=== PATIENT | female | born 1940 | race Hispanic/Latino ===

== ENCOUNTER 2018-07-15 20:03 | Observation (INO) | payer OTHER ==
--- OUTSIDE RECORDS SUMMARY | 2018-07-15 20:05 | XMS REPORT ---
:1940 [facility] Address [address] [place] [address] Care Team Providers Name Role Phone Unavailable Unavailable Unavailable Payers Payer Name Policy Type Policy Number Effective Date Expiration Date Problems This patient has no known problems. Allergies, Adverse Reactions, Alerts Allergy Allergy Status Severity Reaction(s) Onset Inactive Treating Comments Name Type Date Date Clinician sebas SILVA Active U 2011-02 00:00:0 0 Medications This patient has no known medications.
[2018-07-15 20:44] LABS: Absolute Lymphocytes (CBC) 2.6 K/uL (0.7-4.9); Absolute Monocytes 0.7 K/uL (0.1-1.3); Absolute Neutrophil 4.7 K/uL (1.8-8.0); Eosinophils % 1.7 % (0-4.4); Hematocrit 42.6 % (36.0-45.0); Lymphocytes % 31.7 % (15.3-44.8); MCH 31.2 pg (27.0-35.0); MCV 93.3 fL (80-100); MPV 9.6 fL (7.6-11.3); Monocytes % 8.4 % (3.3-12.3); RBC Red Blood Cell Count 4.56 M/uL (3.86-4.86)
[2018-07-15 20:51] LABS: Protime INR 0.97
--- NOTE | 2018-07-15 20:51 | RAD REPORT ---
EXAM DESCRIPTION: RAD - Chest Single View - 07/15/2018 8:44 pm CLINICAL HISTORY: CHEST PAIN Chest pain. COMPARISON: No comparisons FINDINGS: Portable technique limits examination quality. The lungs are grossly clear. The heart is normal in size. No displaced fractures.Aortic atheroscleros is IMPRESSION: No acute intrathoracic process suspected.
[2018-07-15 21:00] LABS: Urine Blood NEGATIVE (NEG); Urine Glucose NEGATIVE (NEG); Urine Protein 2+ (NEG)
[2018-07-15 21:01] LABS: ALT/SGPT 44 U/L (12-78); AST/SGOT 27 U/L (15-37); Albumin 3.8 g/dL (3.4-5.0); Alkaline Phosphatase 128 U/L (45-117); BUN Blood Urea Nitrogen 20 mg/dL (7-18); Bicarbonate 25 mmol/L (21-32); Bilirubin Direct < 0.1 mg/dL (0-0.2); Bilirubin Total 0.3 mg/dL (0.2-1.0); Glucose Level 103 mg/dL (74-106); Magnesium 2.3 mg/dL (1.8-2.4); NT PRO-BNP 870 pg/mL (<450); Potassium 4.1 mmol/L (3.5-5.1); Protein, Total 8.1 g/dL (6.4-8.2); Sodium Level 143 mmol/L (136-145); Troponin (Emerg Dept Use Only) < 0.02 ng/mL (0.0-0.045)
--- NOTE | 2018-07-15 21:26 | ER ---
Nurse's Notes [facility] Name: Heaven Saldivar Age: 77 yrs Sex: Female : 1940 Arrival Date: 07/15/2018 Time: 20:06 Bed 20 Private MD: Lorena Scruggs R Diagnosis: Chest pain, unspecified Presentation: 07/15 20:07 Presenting complaint: Child states: "She was just having a real stressful episode and aj1 she started having palpitations and we couldn't get the blood pressure cuff to read on her" Patient reports substernal chest pain, palpitations, dizziness. Denies SOB. Transition of care: patient was not received from another setting of care. Onset of symptoms was July 15, 2018 at 19:50. Risk Assessment: Do you want to hurt yourself or someone else? Patient reports no desire to harm self or others. Initial Sepsis Screen: Does the patient meet any 2 criteria? No. Patient's initial sepsis screen is negative. Does the patient have a suspected source of infection? No. Patient's initial sepsis screen is negative. Care prior to arrival: None. 20:07 Method Of Arrival: Ambulatory aj1 20:07 Acuity: JOSÉ MIGUEL 3 aj1 Triage Assessment: 20:10 General: Appears in no apparent distress. comfortable, Behavior is calm, cooperative, aj1 appropriate for age. Pain: Complains of pain in mid-sternal area. Neuro: Level of Consciousness is awake, alert, obeys commands. Cardiovascular: Reports chest pain, palpitations, Denies shortness of breath, Patient's skin is warm and dry. Respiratory: Airway is patent Respiratory effort is even, unlabored, Respiratory pattern is regular, symmetrical. Historical: - Allergies: 20:10 Codeine; aj1 - Home Meds: 20:10 atorvastatin 10 mg oral tab 1 tab once daily [Active]; amlodipine 10 mg tab 1 tab once aj1 daily [Active]; - PMHx: 20:10 Hyperlipidemia; Hypertension; aj1 - Immunization history:: Flu vaccine is up to date. - Social history:: Smoking status: Patient/guardian denies using tobacco. - Ebola Screening: : Patient denies travel to an Ebola-affected area in the 21 days before illness onset. Screenin:27 Abuse screen: Denies threats or abuse. Denies injuries from another. Nutritional ak1 screening:. Tuberculosis screening: No symptoms or risk factors identified. Fall Risk None identified. Assessment: 20:27 General: Appears in no apparent distress. Behavior is calm, cooperative, anxious, ak1 crying. Pain: Complains of pain in mid-sternal area. Neuro: No deficits noted. Cardiovascular: Reports palpitations, pt reports increased stress at home with the holiday and her needing special attention. Respiratory: No deficits noted. GI: No signs and/or symptoms were reported involving the gastrointestinal system. : No signs and/or symptoms were reported regarding the genitourinary system. EENT: No signs and/or symptoms were reported regarding the EENT system. Derm: No signs and/or symptoms reported regarding the dermatologic system. Musculoskeletal: No signs and/or symptoms reported regarding the musculoskeletal system. Vital Signs: 20:10 BP 207 / 74; Pulse 62; Resp 18; Temp 97.2; Pulse Ox 97% on R/A; Weight 83.01 kg (R); aj1 Height 4 ft. 7 in. (139.70 cm) (R); Pain 6/10; 21:02 BP 194 / 84; Pulse 54; Resp 16; Temp 98.; Pulse Ox 98% on R/A; ak1 20:10 Body Mass Index 42.53 (83.01 kg, 139.70 cm) aj1 ED Course: 20:06 Patient arrived in ED. es 20:06 Lorena Scruggs MD is Private Physician. es 20:08 Triage completed. aj1 20:10 Arm band placed on Patient placed in an exam room. aj1 20:15 Zane Vela PA is PHCP. [facility] 20:15 Chevy Rodriguez MD is Attending Physician. [facility] 20:27 Tigist Reddy, RN is Primary Nurse. ak1 20:27 EKG done, by ED staff, reviewed by Chevy Rodriguez MD. mt 20:29 Initial lab(s) drawn, by de, sent to lab. Urine collected: clean catch specimen. ak1 Inserted saline lock: 22 gauge in right forearm, using aseptic technique. Blood collected. Missed attempt(s): 22 gauge in right wrist. Bleeding controlled, band aid applied, catheter tip intact. 20:30 Patient has correct armband on for positive identification. Placed in gown. Bed in low ak1 position. Call light in reach. Side rails up X 1. Adult w/ patient. semiconductor packages platemaker on. Pulse ox on. NIBP on. 20:45 XRAY Chest (1 view) In Process Unspecified. EDMS 21:19 Trav Lobo MD is Hospitalizing Provider. otilia 22:32 No provider procedures requiring assistance completed. Patient admitted, IV remains in ak1 place. Administered Medications: : Drug: Aspirin Chewable Tablet 324 mg Route: PO; ak1 21:27 Follow up: Response: No adverse reaction ak1 Outcome: 21:20 Decision to Hospitalize by Provider. [facility] 22:32 Admitted to Tele accompanied by tech, family with patient, via wheelchair, room 208, ak1 with chart, Report called to Jacey 22:32 Condition: good 22:32 Instructed on the need for admit. 22:47 Patient left the ED. al1 Signatures: Dispatcher [employer] Анна Valle, RN RN aj1 Zane Vela PA PA jmm Salyer, Edna es Krenek, Amber RN RN ak1 Saira Hoff tn
--- NOTE | 2018-07-15 21:26 | EDPHYS ---
Physician Documentation [facility] Name: Heaven Saldivar Age: 77 yrs Sex: Female : 1940 Arrival Date: 07/15/2018 Time: 20:06 Bed 20 Private MD: Lorena Scruggs R ED Physician Chevy Rodriguez HPI: 07/15 20:45 This 77 yrs old Female presents to ER via Ambulatory with complaints of jmm Palpitations. 20:45 The patient or guardian reports chest pain that is located primarily in the substernal jmm area. Onset: gradually, 2 hour(s) ago. The pain radiates to throat. Associated signs and symptoms: Pertinent negatives: cough, shortness of breath. The chest pain is described as a pressure. This is a 77 year old female with a history of hlp, htn that presents to the ED with palpitations and substernal chest pain beginning approx 2 hours ago after a family related stressful event. Patient states the patient radiates to her throat. Patient has family history of [place]. Historical: - Allergies: 20:10 Codeine; aj1 - Home Meds: 20:10 atorvastatin 10 mg oral tab 1 tab once daily [Active]; amlodipine 10 mg tab 1 tab once aj1 daily [Active]; - PMHx: 20:10 Hyperlipidemia; Hypertension; aj1 - Immunization history:: Flu vaccine is up to date. - Social history:: Smoking status: Patient/guardian denies using tobacco. - Ebola Screening: : Patient denies travel to an Ebola-affected area in the 21 days before illness onset. ROS: 20:45 Constitutional: Negative for fever, chills, and weight loss, Eyes: Negative for injury, jmm pain, redness, and discharge, ENT: Negative for injury, pain, and discharge. 20:45 Respiratory: Negative for shortness of breath, cough, wheezing, and pleuritic chest pain, Abdomen/GI: Negative for abdominal pain, nausea, vomiting, diarrhea, and constipation, Back: Negative for injury and pain, MS/Extremity: Negative for injury and deformity, Skin: Negative for injury, rash, and discoloration, Neuro: Negative for headache, weakness, numbness, tingling, and seizure. 20:45 Cardiovascular: Positive for chest pain. 20:45 All other systems are negative. Exam: 20:45 Head/Face: atraumatic. Eyes: EOMI, no conjunctival erythema appreciated ENT: Moist [facility] Mucus Membranes Neck: Trachea midline, Supple Chest/axilla: Normal chest wall appearance and motion. 20:45 Respiratory: Normal respirations, no respiratory distress appreciated Abdomen/GI: Non distended, soft Back: Normal ROM Skin: General appearance color normal MS/ Extremity: Moves all extremities, no obvious deformities appreciated, no edema noted to the lower extremities Neuro: Awake and alert, normal gait Psych: Behavior is normal, Mood is normal, Patient is cooperative and pleasant 20:45 Constitutional: The patient appears in no acute distress, alert, awake. 20:45 Cardiovascular: Rate: normal, Rhythm: regular, Pulses: no pulse deficits are appreciated. Vital Signs: 20:10 BP 207 / 74; Pulse 62; Resp 18; Temp 97.2; Pulse Ox 97% on R/A; Weight 83.01 kg (R); aj1 Height 4 ft. 7 in. (139.70 cm) (R); Pain 6/10; 21:02 BP 194 / 84; Pulse 54; Resp 16; Temp 98.; Pulse Ox 98% on R/A; ak1 20:10 Body Mass Index 42.53 (83.01 kg, 139.70 cm) aj1 MDM: 20:27 Patient medically screened. [facility] 21:19 The patient was given aspirin in the Emergency Department. Data reviewed: vital signs, [facility] nurses notes, lab test result(s), EKG, radiologic studies, plain films. ED course: I discussed the patient with Dr. Lobo whom accepted admission. . 21:19 Counseling: I had a detailed discussion with the patient and/or guardian regarding: the [facility] historical points, exam findings, and any diagnostic results supporting the discharge/admit diagnosis, lab results, radiology results, the need for further work-up and treatment in the hospital. 07/15 20: Order name: Basic Metabolic Panel; Complete Time: 21:02 [facility] 07/15 20: Order name: CBC with Diff; Complete Time: 20:51 [facility] 07/15 20: Order name: LFT's; Complete Time: 21:02 [facility] 07/15 20: Order name: Magnesium; Complete Time: 21:02 [facility] 11/21 20:27 Order name: NT PRO-BNP; Complete Time: 21:02 [facility] 07/15 20:27 Order name: PT-INR; Complete Time: 21:02 [facility] 07/15 20:27 Order name: Troponin (emerg Dept Use Only); Complete Time: 21:02 [facility] 07/15 20:27 Order name: XRAY Chest (1 view); Complete Time: 20:52 [facility] 07/15 20:27 Order name: EKG; Complete Time: 20: [facility] 07/15 20:27 Order name: Cardiac monitoring; Complete Time: 20:28 [facility] 07/15 20:27 Order name: EKG - Nurse/Tech; Complete Time: 20: [facility] 07/15 20:27 Order name: IV Saline Lock; Complete Time: 20: [facility] 07/15 20:39 Order name: Urine Dipstick--Ancillary (enter results); Complete Time: 21: [facility] 07/15 20:27 Order name: Labs collected and sent; Complete Time: 20: [facility] 07/15 20:27 Order name: O2 Per Protocol; Complete Time: 20: [facility] 07/15 20:27 Order name: O2 Sat Monitoring; Complete Time: 20: [facility] Administered Medications: 21:27 Drug: Aspirin Chewable Tablet 324 mg Route: PO; ak1 21:27 Follow up: Response: No adverse reaction ak1 Disposition: 07/16 05:13 Co-signature as Attending Physician, Chevy Rodriguez MD I agree with the assessment and 4 plan of care. Disposition: 07/15/18 21:20 Hospitalization ordered by Trav Lobo for Observation. Preliminary diagnosis is Chest pain, unspecified. - Bed requested for Telemetry/MedSurg (observation). - Status is Observation. ak1 - Condition is Stable. - Problem is new. - Symptoms are unchanged. UTI on Admission? No Signatures: Dispatcher [employer] Анна Valle, RN RN [email or web address] Zane Vela PA PA jmm Tigist Reddy RN RN no1 Chevy Rodriguez MD MD tw4 Vera Perez mw2 Corrections: (The following items were deleted from the chart) 07/15 21:46 21:20 Hospitalization Ordered by Trav Lobo MD for Observation. Preliminary mw2 diagnosis is Chest pain, unspecified. Bed requested for Telemetry/MedSurg (observation). Status is Observation. Condition is Stable. Problem is new. Symptoms are unchanged. UTI on Admission? No. jmm 22:47 21:46 07/15/2018 21:20 Hospitalization Ordered by Trav Lobo MD for Observation. ak1 Preliminary diagnosis is Chest pain, unspecified. Bed requested for Telemetry/MedSurg (observation). Status is Observation. Condition is Stable. Problem is new. Symptoms are unchanged. UTI on Admission? No. mw2
[2018-07-15] MEDS ORDERED: ASPIRIN 81 MG CHEWABLE TABLET ONE (21:33)
[2018-07-15] MEDS ORDERED: ALPRAZOLAM 0.25 MG TABLET PO PRN (22:00)
[2018-07-15] MEDS ORDERED: ACETAMINOPHEN 500 MG TAB PO PRN (22:00)
[2018-07-15] MEDS ORDERED: MORPHINE 4 MG/ML SYR IV PRN (22:00)
[2018-07-16] MEDS ORDERED: AMLODIPINE 10 MG TAB PO ONE (00:26)
[2018-07-16] MEDS ORDERED: ATORVASTATIN 20 MG TAB PO ONE (00:27)
[2018-07-16 05:35] LABS: Absolute Lymphocytes (CBC) 2.4 K/uL (0.7-4.9); Absolute Monocytes 0.7 K/uL (0.1-1.3); Absolute Neutrophil 4.3 K/uL (1.8-8.0); Basophils % 0.4 % (0-1.3); Eosinophils % 1.7 % (0-4.4); Hematocrit 39.9 % (36.0-45.0); Lymphocytes % 31.8 % (15.3-44.8); MCH 31.1 pg (27.0-35.0); MCV 93.3 fL (80-100); MPV 9.7 fL (7.6-11.3); Monocytes % 9.4 % (3.3-12.3); RBC Red Blood Cell Count 4.28 M/uL (3.86-4.86)
[2018-07-16 05:51] LABS: BUN Blood Urea Nitrogen 14 mg/dL (7-18); Bicarbonate 27 mmol/L (21-32); Glucose Level 93 mg/dL (74-106); Potassium 3.8 mmol/L (3.5-5.1); Sodium Level 144 mmol/L (136-145)
[2018-07-16] MEDS ORDERED: PNEUMOCOCCAL VACCINE 0.5 ML IMVAC ONE (08:00)
--- NOTE | 2018-07-16 08:24 | P.HP ---
Certification for Inpatient Patient admitted to: Observation With expected LOS: <2 Midnights Patient will require the following post-hospital care: None Practitioner: I am a practitioner with admitting privileges, knowledge of patient current condition, hospital course, and medical plan of care. Services: Services provided to patient in accordance with Admission requirements found in Title 42 Section 412.3 of the Code of Federal Regulations Patient History Date of Service: 07/15/18 Reason for admission: Chest pain rule out/palpitations History of Present Illness: Patient is a 77-year-old female who was sitting at home when she suddenly started having palpitations. She was with her family who from decided bring her into the hospital. In the emergency room her workup did not reveal any significant abnormalities. She was having chest pain but this was alleviated when she came into the ER by medication she received. She has not had the chest pain recur. She is feeling better and she is feeling that she may be able to go home. However, currently we are awaiting her repeat EKG and troponins. If these are negative then she may be able to go home in the morning if Cardiology is agreeable. Allergies codeine Allergy (Verified 07/15/18 23:09) Hives/Rash Home Medications: Amlodipine [Norvasc*] 1 tab PO BEDTIME 07/15/18 Atorvastatin Calcium [Lipitor*] 1 tab PO BEDTIME 07/15/18 - Past Medical/Surgical History Has patient received pneumonia vaccine in the past: No Diabetic: No -: Hyperlipedimia -: Hypertension -: L mastectomy - Family History Father Medical History: Stroke Mother Medical History: Heart disease - Social History Smoking Status: Never smoker Alcohol use: No CD- Drugs: No Caffeine use: Yes Place of Residence: Home Review of Systems 10-point ROS is otherwise unremarkable Physical Examination - Vital Signs Temperature: 97.8 F Blood Pressure: 162/68 Pulse: 52 Respirations: 18 Pulse Ox (%): 93 - Physical Exam General: Alert, In no apparent distress, Oriented x3 HEENT: Atraumatic, PERRLA, Mucous membr. moist/pink, EOMI, Sclerae nonicteric Neck: Supple, 2+ carotid pulse no bruit, No LAD, Without JVD or thyroid abnormality Respiratory: Clear to auscultation bilaterally, Normal air movement Cardiovascular: Regular rate/rhythm, Normal S1 S2, Systolic murmur Gastrointestinal: Normal bowel sounds, Soft and benign, Non-distended, No tenderness Musculoskeletal: No clubbing, No swelling, No tenderness Integumentary: No rashes Neurological: Normal gait, Normal speech, Normal strength at 5/5 x4 extr, Normal tone, Sensation intact, Cranial nerves 3-12 intact, Normal affect Lymphatics: No axilla or inguinal lymphadenopathy - Studies Laboratory Data (last 24 hrs) 07/15/18 20:30: PT 11.5, INR 0.97 07/15/18 20:30: WBC 8.2, Hgb 14.2, Hct 42.6, Plt Count 177 07/15/18 20:30: Sodium 143, Potassium 4.1, BUN 20 H, Creatinine 0.80, Glucose 103, Magnesium 2.3, Total Bilirubin 0.3, AST 27, ALT 44, Alkaline Phosphatase 128 H Assessment & Plan - Problems (Diagnosis) (1) Chest pain, rule out acute myocardial infarction Current Visit: Yes Status: Acute (2) Hypertension Current Visit: Yes Status: Acute (3) Dyslipidemia Current Visit: Yes Status: Acute (4) Palpitations Current Visit: Yes Status: Acute - Plan 1. Serial troponins and EKG 2. Cardiology consultation 3. Echocardiogram or this can be done as an outpatient if patient is stable for discharge 4. Anti-platelet therapy, anti coagulation, beta-diane, statin, and O2 as needed 5. IV morphine for pain 6. Continue with current plan of care Discharge Plan: Home Plan to discharge in: 48 Hours - Advance Directives Does patient have a Living Will: Yes Does patient have a Durable POA for Healthcare: Yes - Code Status/Comfort Care Code Status Assessed: Yes Code Status: Full Code Critical Care: No Time Spent Managing PTS Care (In Minutes): 50
[2018-07-16] MEDS ORDERED: ASPIRIN EC 81 MG TAB PO SCH (09:00)
[2018-07-16] MEDS ORDERED: ENOXAPARIN 40 MG/0.4 ML SQ SCH (09:00)
[2018-07-16] MEDS ORDERED: METOPROLOL TAR 50 MG TAB PO SCH (09:00)
[2018-07-16 09:20] LABS: Urine Appearance CLEAR; Urine Bilirubin NEGATIVE (NEG); Urine Blood NEGATIVE (NEG); Urine Color YELLOW; Urine Glucose NEGATIVE (NEG); Urine Protein TRACE (NEG); Urine Specific Gravity <=1.005 (1.005-1.030); Urine Urobilinogen 0.2 mg/dL (0.2-1.0)
--- NOTE | 2018-07-16 09:25 | CON ---
CARDIOLOGY CONSULT Chief Complaint: Pain in the throat. History Of Present Illness: The patient is under a lot of distress now. She is caring for a with advanced dementia. She is having family members over for Thanksgiving. She got in an argument with some family members, and after getting very angry and explosive, she started to feel uncomforta ble in her throat and shoulders. It went away when she calmed down. She came to the hospital where cardiac enzymes are normal. All of her blood tests are normal. A chest x-ray is normal, and an EKG is not suggestive of an acute coronary syndrome. The patient has never had heart disease. She takes Lipitor and amlodipine for dyslipidemia and hypertension. She does not have exertional angina. She is multigravid. Allergies: ALLERGIC TO CODEINE. Social History: She uses no tobacco, no alcohol, no illegal drugs. Physical Examination: General: She is 4 feet 7 inches, 177 pounds. Alert, oriented, pleasant. Neck: No carotid bruit. Lungs: Clear. Cardiac: Within normal limits. Abdomen: Soft. Extremities: Distal pulses palpable. No edema, cyanosis, or clubbing. Impression: The patient probably needs to have a stress test, but she does not need to stay another day in the hospital to do it. She is stable to be discharged. She can do an outpatient stress test. TANG Voice ID: [id number] Report ID: [id number]
--- NOTE | 2018-07-16 09:39 | EKG ---
Test Date: 2018-07-16 Test Time: 08:14:14 Green Chainer: BEA MEASUREMENT RESULTS: Intervals: Rate: 53 [place]: 196 QRSD: 148 QT: 524 QTc: 491 [place]: P: 34 IA: 196 QRS: -58 T: -49 INTERPRETIVE STATEMENTS: Sinus bradycardia Right bundle branch block Left axis Voltage criteria for left ventricular hypertrophy Cannot rule out Septal infarct, age undetermined T wave abnormality, consider lateral ischemia Abnormal ECG Compared to ECG 07/15/2018 20:17:27 T-wave abnormality now present Possible ischemia now present Ventricular premature complex(es) no longer present Myocardial infarct finding still present Electronically Signed On 07-16-18 09:39:28 TOWN PLANNER by Wilman Vazquez
--- NOTE | 2018-07-16 09:41 | EKG ---
Test Date: 2018-07-15 Test Time: 20:17:27 Nutrition Intern: FABIENNE MEASUREMENT RESULTS: Intervals: Rate: 57 [place]: 182 QRSD: 154 QT: 470 QTc: 457 [place]: P: 57 [place]: 182 QRS: -49 T: 28 INTERPRETIVE STATEMENTS: Sinus bradycardia with occasional premature ventricular complexes Right bundle branch block Left axis Voltage criteria for left ventricular hypertrophy Cannot rule out Septal infarct, age undetermined Abnormal ECG Compared to ECG 10/08/2004 07:45:00 Ventricular premature complex(es) now present Right bundle-branch block now present Myocardial infarct finding now present Electronically Signed On 07-16-18 09:41:07 SENIOR DIRECTOR by Wilman Vazquez
[2018-07-16 10:48] LABS: Urine Microscopic Reflex ORDER UMIC
[2018-07-16 10:49] LABS: Urine Bacteria >50 /HPF (<20); Urine Culture Reflex Order REFLEXED; Urine RBC NONE SEEN /HPF (NONE SEEN)
[2018-07-16 10:50] LABS: Urine Amorphous Sediment 2+ /HPF (NONE SEEN)
--- NOTE | 2018-07-16 13:08 | P.SSS ---
Patient History Date of Service: 07/16/18 Reason for admission: Chest pain rule out/palpitations History of Present Illness: Patient is a 77-year-old female who was sitting at home when she suddenly started having palpitations. She was with her family who from decided bring her into the hospital. In the emergency room her workup did not reveal any significant abnormalities. She was having chest pain but this was alleviated when she came into the ER by medication she received. She has not had the chest pain recur. She is feeling better and she is feeling that she may be able to go home. However, currently we are awaiting her repeat EKG and troponins. If these are negative then she may be able to go home in the morning if Cardiology is agreeable. Allergies codeine Allergy (Verified 07/15/18 23:09) Hives/Rash Home Medications: Amlodipine [Norvasc*] 1 tab PO BEDTIME 07/15/18 Atorvastatin Calcium [Lipitor*] 1 tab PO BEDTIME 07/15/18 - Past Medical/Surgical History Has patient received pneumonia vaccine in the past: No Diabetic: No -: Hyperlipedimia -: Hypertension -: L mastectomy - Family History Father -: Stroke Mother -: Heart disease - Social History Smoking Status: Never smoker Alcohol use: No CD- Drugs: No Caffeine use: Yes Place of Residence: Home Review of Systems As noted Physical Examination - Vital Signs Temperature: 97.8 F Blood Pressure: 162/68 Pulse: 52 Respirations: 18 Pulse Ox (%): 93 - Physical Exam General: Alert, In no apparent distress, Oriented x3 HEENT: Atraumatic, PERRLA, Mucous membr. moist/pink, EOMI, Sclerae nonicteric Neck: Supple, 2+ carotid pulse no bruit, No LAD, Without JVD or thyroid abnormality Respiratory: Clear to auscultation bilaterally, Normal air movement Cardiovascular: Regular rate/rhythm, Normal S1 S2 Gastrointestinal: Normal bowel sounds, No tenderness Musculoskeletal: No tenderness Integumentary: No rashes Neurological: Normal gait, Normal speech, Normal strength at 5/5 x4 extr, Normal tone, Normal affect Lymphatics: No axilla or inguinal lymphadenopathy - Studies Laboratory Data (last 24 hrs) 07/15/18 20:30: PT 11.5, INR 0.97 07/15/18 20:30: WBC 8.2, Hgb 14.2, Hct 42.6, Plt Count 177 07/15/18 20:30: Sodium 143, Potassium 4.1, BUN 20 H, Creatinine 0.80, Glucose 103, Magnesium 2.3, Total Bilirubin 0.3, AST 27, ALT 44, Alkaline Phosphatase 128 H Treatment Summary: Patient was admitted for chest pain. Serial troponins and EKG were negative. Cardiology was consulted, she was seen and cleared by Cardiology. She will need to follow up outpatient with Cardiology for possible stress test as an outpatient. Discussed with patient, information given, all questions answered. Patient verbalized understanding regarding these instructions. Patient discharged home in a stable manner. At the time of discharge, patient tolerating regular diet, denying any chest pain, shortness of breath, vision changes, syncopal/presyncopal episodes or any GI complaints. No medication changes made on discharge. Did not add beta-diane to regimen as patient is heart rate was on the lower and. She will be following up with cardiology outpatient, can discuss further at that time if beta-diane needed. - Disposition Disposition: ROUTINE DISCHARGE Condition: GOOD Consultations: Cardiology, Dr. Vazquez Patient Discharge Instructions: Please follow up with cardiology, Dr. Vazquez in 1-2 weeks. Information provided. Diet: AHA Activity: Ad vineet Physician Review: Patient Assessed, Agree with Above Assessment and Plan Time Spent Managing Pts Care (In Minutes): 45
[2018-07-16] MEDS ORDERED: ATORVASTATIN 10 MG TAB PO SCH (21:00)
[2018-07-16] MEDS ORDERED: AMLODIPINE 10 MG TAB PO SCH (21:00)
--- NOTE | 2018-07-17 06:22 | EKG ---
Test Date: 2018-07-16 Test Time: 11:16:09 Pantograph Operator: BEA MEASUREMENT RESULTS: Intervals: Rate: 43 [place]: QRSD: 156 QT: 566 QTc: 478 [place]: P: [place]: QRS: -44 T: -64 INTERPRETIVE STATEMENTS: Junctional rhythm with a premature atrial complex Right bundle branch block Left axis deviation Left ventricular hypertrophy with QRS widening Anterolateral T abnormality Abnormal ECG Compared to ECG 07/16/2018 08:14:14 Junctional rhythm now present Atrial premature complex(es) now present Sinus bradycardia no longer present Myocardial infarct finding no longer present Electronically Signed On 07-17-18 06:21:14 UNDERWRITING SUPPORT SPECIALIST by Wilman Vazquez
== END 2018-07-16 14:39 | disposition home or self-care (01) ==
LOC: ER 20:03 → ERHOLD 21:21 → 2ND 22:33
PROVIDERS: ADMIT Hospitalist; ATTEND Hospitalist
DX: R07.9 Chest pain, unspecified (principal); R00.2 Palpitations; E78.5 Hyperlipidemia, unspecified; I10 Essential (primary) hypertension; Z23 Encounter for immunization
CPT/HCPCS: 36415; 71045; 80048 ×2; 80061; 80076; 81003; 83735; 83880; 84484 ×2; 85025 ×2; 85610; 87077; 87086; 87088; 87186; 90670; 93005 ×3; 99285; G0009; J1650; 81015; G0378

== ENCOUNTER 2018-08-21 19:28 | Emergency (ER) | payer OTHER ==
--- OUTSIDE RECORDS SUMMARY | 2018-08-21 19:31 | XMS REPORT ---
:1940 [facility] Address [address] [place] [address] Care Team Providers Name Role Phone Unavailable [...]
--- NOTE | 2018-08-21 21:10 | RAD REPORT ---
EXAM DESCRIPTION: CT - Head Brain Wo Cont - 08/21/2018 8:50 pm CLINICAL HISTORY: Head injury status post fall. Headache COMPARISON: January 2018 MRI TECHNIQUE: Computed axial tomography of the head was obtained. IV contrast was not requested. All CT scans are performed using dose optimization technique as appropriate and may include automated exposure control or mA/KV adjustment according to patient size. FINDINGS: A posterior scalp hematoma without an underlying skull fracture. An intracranial bleed is not seen . The ventricles are normal in caliber. No extra-axial fluid collection is noted. Moderate low-density areas within periventricular, deep and subcortical white matter likely represent ischemic changes secondary to small vessel disease. Chronic sinusitis IMPRESSION: No acute intracranial abnormality is seen. If patient's symptoms persist MRI of the bra in would be recommended.
--- NOTE | 2018-08-21 21:19 | ER ---
Nurse's Notes [facility] Name: Heaven Saldivar Age: 77 yrs Sex: Female : 1940 Arrival Date: 08/21/2018 Time: 19:32 Bed 5 Private MD: Diagnosis: Hematoma Scalp;Superficial injury of head Presentation: 08/21 20:15 Presenting complaint: Patient states: Hit back of head on coffee table today at 1800 aj while pulling on a chair. Denies LOC. Care prior to arrival: None. Mechanism of Injury: Fall from standing position. Trauma event details: Injury occurred in the [facility], Injury occurred: at home. Injury occurred: August 21, 2018 Injury occurred at: 18:00. 20:15 Acuity: JOSÉ MIGUEL 4 aj 20:15 Method Of Arrival: Ambulatory aj 21:16 Transition of care: patient was not received from another setting of care. Onset of lp1 symptoms was August 21, 2018 at 18:00. Risk Assessment: Do you want to hurt yourself or someone else? Patient reports no desire to harm self or others. Initial Sepsis Screen: Does the patient meet any 2 criteria? No. Patient's initial sepsis screen is negative. Does the patient have a suspected source of infection? No. Patient's initial sepsis screen is negative. Trauma Activation: Not Applicable Physician: ED Physician; Name: ; Notified At: ; Arrived At: Physician: General Surgeon; Name: ; Notified At: ; Arrived At: Physician: Radiology; Name: ; Notified At: ; Arrived At: Physician: Respiratory; Name: ; Notified At: ; Arrived At: Physician: Lab; Name: ; Notified At: ; Arrived At: Historical: - Allergies: 20:19 Codeine; aj - Home Meds: 20:19 amlodipine 10 mg tab 1 tab once daily [Active]; atorvastatin 10 mg Oral tab 1 tab once aj daily [Active]; oxybutynin chloride 5 mg Oral tab 1 tab 2 times per day [Active]; sertraline 25 mg oral tab 1 tab once daily [Active]; - PMHx: 20:19 Hyperlipidemia; Hypertension; aj - Immunization history: Last tetanus immunization: < 5 years ago. - Social history:: Smoking status: Patient/guardian denies using tobacco. - Ebola Screening: : Patient negative for fever greater than or equal to 101.5 degrees Fahrenheit, and additional compatible Ebola Virus Disease symptoms Patient denies exposure to infectious person Patient denies travel to an Ebola-affected area in the 21 days before illness onset No symptoms or risks identified at this time. Screenin:16 Abuse screen: Denies threats or abuse. Denies injuries from another. Nutritional lp1 screening: No deficits noted. Tuberculosis screening: No symptoms or risk factors identified. Fall Risk Total Randle Fall Scale indicates High Risk Score (45 or more points). Fall prevention measures have been instituted. Side Rails Up X 2 Family Present and informed to notify staff if the need to leave the bedside As available patient and family educated on Fall Prevention Program and Strategies. Primary Survey: 20:15 NO uncontrolled hemorrhage observed. Breathing/Chest: Respiratory pattern: regular, no aj respiratory pattern noted, Respiratory effort: spontaneous, unlabored, Breath sounds: clear, Chest inspection: symmetrical rise and fall of the chest. Circulation: Skin color: pink. Disability Alert. Assessment: 20:15 General: Appears in no apparent distress. comfortable, Behavior is calm, cooperative, aj appropriate for age. Pain: Complains of pain in scalp. Neuro: Level of Consciousness is awake, alert, obeys commands, Oriented to person, place, time, situation, Appropriate for age. Respiratory: Airway is patent Respiratory effort is even, unlabored, Respiratory pattern is regular, symmetrical. Derm: Skin is intact, is healthy with good turgor, Skin is pink, warm \T\ dry. normal. Injury Description: Bruise sustained to occipital area. 21:00 Reassessment: Patient is alert, oriented x 3, equal unlabored respirations, skin lp1 warm/dry/pink. General: Behavior is appropriate for age. Neuro: Denies blurred vision dizziness. Derm: Bruising that is bump noted to back of head, no break in skin; tender on palpation. Derm: Skin is pink, warm \T\ dry. 21:28 Reassessment: Patient appears in no apparent distress at this time. Patient and/or tl2 family updated on plan of care and expected duration. Pain level reassessed. Patient is alert, oriented x 3, equal unlabored respirations, skin warm/dry/pink. pt and family verbalized understanding of discharge instructions, need for follow up. Vital Signs: 20:15 BP 166 / 82; Pulse 58; Resp 19; Temp 98.0; Pulse Ox 98% on R/A; Weight 79.38 kg; Height aj 4 ft. 7 in. (139.70 cm); 21:28 BP 150 / 55; Pulse 55; Resp 18; Pulse Ox 98% on R/A; tl2 20:15 Body Mass Index 40.67 (79.38 kg, 139.70 cm) aj Chris Coma Score: 20:15 Eye Response: spontaneous(4). Verbal Response: oriented(5). Motor Response: obeys aj commands(6). Total: 15. Trauma Score (Adult): 20:15 Eye Response: spontaneous(1); Verbal Response: oriented(1); Motor Response: obeys aj commands(2); Systolic BP: > 89 mm Hg(4); Respiratory Rate: 10 to 29 per min(4); [place] Score: 15; Trauma Score: 12 ED Course: 19:32 Patient arrived in ED. es 20:16 Triage completed. aj 20:19 Arm band placed on right wrist. Patient placed in waiting room, Patient notified of wait time. 20:[address] via wheelchair. 2 20:49 CT completed. Patient tolerated procedure well. Patient moved back from CT. vm2 20:49 CT Head Brain wo Cont In Process Unspecified. EDMS 20:51 [facility] 8 20:51 Ephraim Sow MD is Attending Physician. jr8 21:09 Emily Duran, RL is Primary Nurse. lp1 21:17 Patient has correct armband on for positive identification. lp1 21:17 Patient did not have IV access during this emergency room visit. lp1 21:28 No provider procedures requiring assistance completed. tl2 Administered Medications: No medications were administered Outcome: 21:18 Discharge ordered by . jr8 21:28 Discharged to home ambulatory, with family. tl2 21:28 Condition: stable 21:28 Discharge instructions given to patient, family, Instructed on discharge instructions, follow up and referral plans. Demonstrated understanding of instructions, follow-up care. 21:33 Patient left the ED. lp1 Signatures: Dispatcher [employer] EDAmy Del Toro RN RN aj Salyer, Edna Emily Duran RN RN lp1 Sukhwinder Pitts PA PA [facility] Jeane Garcia RN RN tl2 [place], [facility]2
--- NOTE | 2018-08-21 21:19 | EDPHYS ---
Physician Documentation [facility] Name: Heaven Saldivar Age: 77 yrs Sex: Female : 1940 Arrival Date: 08/21/2018 Time: 19:32 Bed 5 Private MD: ED Physician Ephraim Sow HPI: 08/21 21:16 This 77 yrs old Female presents to ER via Ambulatory with complaints of Fall jr8 Injury. 21:16 Details of fall: The patient fell from an upright position. Onset: The symptoms/episode jr8 began/occurred acutely, today. Associated injuries: The patient sustained injury to the head, hematoma, pain, swelling, tenderness. Severity of symptoms: At their worst the symptoms were moderate, in the emergency department the symptoms have improved. The patient has not experienced similar symptoms in the past. The patient has not recently seen a physician. Was moving furniture and lost control falling back and hitting back of head on table. No LOC. Denies any other pain. Historical: - Allergies: 20:19 Codeine; aj - Home Meds: 20:19 amlodipine 10 mg tab 1 tab once daily [Active]; atorvastatin 10 mg Oral tab 1 tab once aj daily [Active]; oxybutynin chloride 5 mg Oral tab 1 tab 2 times per day [Active]; sertraline 25 mg oral tab 1 tab once daily [Active]; - PMHx: 20:19 Hyperlipidemia; Hypertension; aj - Immunization history: Last tetanus immunization: < 5 years ago. - Social history:: Smoking status: Patient/guardian denies using tobacco. - Ebola Screening: : Patient negative for fever greater than or equal to 101.5 degrees Fahrenheit, and additional compatible Ebola Virus Disease symptoms Patient denies exposure to infectious person Patient denies travel to an Ebola-affected area in the 21 days before illness onset No symptoms or risks identified at this time. ROS: 21:16 Eyes: Negative for injury, pain, redness, and discharge, ENT: Negative for injury, jr8 pain, and discharge, Neck: Negative for injury, pain, and swelling, Cardiovascular: Negative for chest pain, palpitations, and edema, Respiratory: Negative for shortness of breath, cough, wheezing, and pleuritic chest pain, Abdomen/GI: Negative for abdominal pain, nausea, vomiting, diarrhea, and constipation, Back: Negative for injury and pain, MS/Extremity: Negative for injury and deformity, Skin: Negative for injury, rash, and discoloration, Neuro: Negative for headache, weakness, numbness, tingling, and seizure. Exam: 21:16 Eyes: Pupils equal round and reactive to light, extra-ocular motions intact. Lids and jr8 lashes normal. Conjunctiva and sclera are non-icteric and not injected. Cornea within normal limits. Periorbital areas with no swelling, redness, or edema. ENT: Nares patent. No nasal discharge, no septal abnormalities noted. Tympanic membranes are normal and external auditory canals are clear. Oropharynx with no redness, swelling, or masses, exudates, or evidence of obstruction, uvula midline. Mucous membranes moist. Neck: Trachea midline, no thyromegaly or masses palpated, and no cervical lymphadenopathy. Supple, full range of motion without nuchal rigidity, or vertebral point tenderness. No Meningismus. Cardiovascular: Regular rate and rhythm with a normal S1 and S2. No gallops, murmurs, or rubs. Normal PMI, no JVD. No pulse deficits. Respiratory: Lungs have equal breath sounds bilaterally, clear to auscultation and percussion. No rales, rhonchi or wheezes noted. No increased work of breathing, no retractions or nasal flaring. Abdomen/GI: Soft, non-tender, with normal bowel sounds. No distension or tympany. No guarding or rebound. No evidence of tenderness throughout. Back: No spinal tenderness. No costovertebral tenderness. Full range of motion. Skin: Warm, dry with normal turgor. Normal color with no rashes, no lesions, and no evidence of cellulitis. MS/ Extremity: Pulses equal, no cyanosis. Neurovascular intact. Full, normal range of motion. Neuro: Awake and alert, GCS 15, oriented to person, place, time, and situation. Cranial nerves II-XII grossly intact. Motor strength 5/5 in all extremities. Sensory grossly intact. Cerebellar exam normal. Normal gait. 21:16 Head/face: Noted is hematoma, that is mild, of the right side of the back of head and right occipital area, tenderness, of the right side of the back of head and right occipital area. Vital Signs: 20:15 BP 166 / 82; Pulse 58; Resp 19; Temp 98.0; Pulse Ox 98% on R/A; Weight 79.38 kg; Height aj 4 ft. 7 in. (139.70 cm); 21:28 BP 150 / 55; Pulse 55; Resp 18; Pulse Ox 98% on R/A; tl2 20:15 Body Mass Index 40.67 (79.38 kg, 139.70 cm) aj Chris Coma Score: 20:15 Eye Response: spontaneous(4). Verbal Response: oriented(5). Motor Response: obeys aj commands(6). Total: 15. Trauma Score (Adult): 20:15 Eye Response: spontaneous(1); Verbal Response: oriented(1); Motor Response: obeys aj commands(2); Systolic BP: > 89 mm Hg(4); Respiratory Rate: 10 to 29 per min(4); Chris Score: 15; Trauma Score: 12 MDM: 20:52 Patient medically screened. jr8 21:16 Data reviewed: vital signs, nurses notes, radiologic studies, CT scan. Data jr8 interpreted: Pulse oximetry: on room air is 98 %. Interpretation: normal. Counseling: I had a detailed discussion with the patient and/or guardian regarding: the historical points, exam findings, and any diagnostic results supporting the discharge/admit diagnosis, radiology results, the need for outpatient follow up, a family practitioner, to return to the emergency department if symptoms worsen or persist or if there are any questions or concerns that arise at home. 08/21 20:20 Order name: CT Head Brain wo Cont; Complete Time: 21:16 aj Administered Medications: No medications were administered Disposition: 08/22 06:42 Co-signature as Attending Physician, Ephraim Sow MD I agree with the assessment and kdr plan of care. Disposition: 08/21/18 21:18 Discharged to Home. Impression: Hematoma Scalp, Superficial injury of head. - Condition is Stable. - Discharge Instructions: Head Injury, Adult, Hematoma. - Medication Reconciliation Form, Thank You Letter, Antibiotic Education, Prescription Opioid Use form. - Follow up: Private Physician; When: As needed; Reason: Recheck today's complaints, Continuance of care, Re-evaluation by your physician. - Problem is new. - Symptoms have improved. Signatures: Dispatcher [employer] EDAmy Del Toro RN Ephraim Barajas MD MD kdr Pena, Laura, RN RN lp1 Sukhwinder Pitts PA PA jr8 Corrections: (The following items were deleted from the chart) 08/21 21:33 21:18 08/21/2018 21:18 Discharged to Home. Impression: Hematoma Scalp; Superficial lp1 injury of head. Condition is Stable. Forms are Medication Reconciliation Form, Thank You Letter, Antibiotic Education, Prescription Opioid Use. Follow up: Private Physician; When: As needed; Reason: Recheck today's complaints, Continuance of care, Re-evaluation by your physician. Problem is new. Symptoms have improved. jr8
== END 2018-08-21 21:33 | disposition home or self-care (01) ==
LOC: ER 19:28
DX: S00.03XA Contusion of scalp, initial encounter (principal); S00.90XA Unspecified superficial injury of unspecified part of head, initial encounter; W01.190A Fall on same level from slipping, tripping and stumbling with subsequent striking against furniture, initial encounter; E78.5 Hyperlipidemia, unspecified; I10 Essential (primary) hypertension; Z79.899 Other long term (current) drug therapy
CPT/HCPCS: 70450; 99284

== ENCOUNTER 2019-02-28 02:09 | Emergency (ER) | payer OTHER ==
--- OUTSIDE RECORDS SUMMARY | 2019-02-28 02:12 | XMS REPORT ---
:1940 [facility] Address [address] [place] [address] Care Team Providers Name Role Phone Unavailable Unavailable Unavailable Payers Payer Name Policy Type Policy Number Effective Date Expiration Date Problems This patient has no known problems. Allergies, Adverse Reactions, Alerts Allergy Allergy Status Severity Reaction(s) Onset Inactive Treating Comments Name Type Date Date Clinician sebas SILVA Active U 2011-02 00:00:0 0 Medications This patient has no known medications. Results Test Description Test Time Test Comments Text Results Atomic Results Result Comments VITAMIN D TOTAL 25OH 2018-11-13 15:31:00 Test Item Value Reference Range Comments VITAMIN D TOTAL 25OH (test code=VITD) 54.3 ng/ml 30-100 COMPREHENSIVE METABOLIC [id number] 15:30:00 Test Item Value Reference Range Comments SODIUM (test code=NA) 134 mmol/L 136-145 POTASSIUM (test code=K) 4.0 mmol/L 3.5-5.1 CHLORIDE (test code=CL) 99 mmol/L 98-107 CARBON DIOXIDE (test code=CO2) 31 mmol/L 21-32 GLUCOSE (test code=GLU) 88 mg/dL 70-100 BLOOD UREA NITROGEN (test 15 mg/dL 7-18 code=BUN) GLOMERULAR FILTRATION RATE > 60.00 >=60 Reporting units: (test code=GFR) mL/min/1.73m\S\2 (Modified MDRD formula)REFERENCE RANGE: > or=60 ml/min/1.73M2IF PATIENT IS -SIERRA LEONEAN, MULTIPLY REPORTED RESULT BY1.21. CREATININE (test code=CREAT) 0.63 mg/dl 0.55-1.02 TOTAL PROTEIN (test code=PROT) 7.3 g/dl 6.4-8.2 ALBUMIN (test code=ALB) 3.9 g/dl 3.4-5.0 CALCIUM (test code=CA) 9.0 mg/dl 8.5-10.1 BILIRUBIN TOTAL (test 0.4 mg/dL 0.2-1.0 code=BILT) SGOT/AST (test code=AST) 17 U/L 15-37 SGPT/ALT (test code=ALT) 25 U/L 12-78 ALKALINE PHOSPHATASE TOTAL 90 U/L 45-117 (test code=ALKP) LIPID PROFILE (CORONARY RISK)2018-11-13 15:30:00 Test Item Value Reference Range Comments TRIGLYCERIDES (test code=TRIG) 34 mg/dL <150 CHOLESTEROL (test code=CHOL) 214 mg/dL < 200 HDL CHOLESTEROL (test code=HDL) 103 mg/dL 40-59 NON-HDL CHOLESTEROL (test 111 mg/dl <130 code=NHDL) LIPOPROTEIN LDL TIM (test 104 mg/dl <100 code=LDLC) LDL/HDL (test code=LDL/HDL) 1.0 Ratio LDL/HDL RATIO RISK 3.22 Average 5.03 Twice average 6.14 Three times average T4 [id number] 15:30:00 Test Item Value Reference Range Comments T4 FREE (test code=T4F) 1.05 ng/dl 0.76-1.46 THYROID STIMULATING [id number] 15:30:00 Test Item Value Reference Range Comments THYROID STIMULATING HORMONE (test code=TSH) 2.571 0.358-3.74 CBC W/AUTO [id number] 14:58:00 Test Item Value Reference Range Comments WHITE BLOOD CELL (test code=WBC) 4.0 X10(3) 4.5-11.0 RED BLOOD CELL (test code=RBC) 4.21 X10(6) 4.2-5.4 HEMOGLOBIN (test code=HGB) 12.1 g/dL 12.5-16.0 HEMATOCRIT (test code=HCT) 37.4 % 37.0-47.0 MEAN CELL VOLUME (test code=MCV) 88.8 fL 78-100 MEAN CELL HGB (test code=MCH) 28.7 pg 26.0-34.0 MEAN CELL HGB CONCETRATION (test code=MCHC) 32.4 g/dl 32.0-36.0 RED CELL DISTRIBUTION WIDTH (test code=RDW) 14.5 % 11.5-14.5 PLATELET COUNT (test code=PLT) 217 X10(3) 150-350 MEAN PLATELET VOLUME (test code=MPV) 12.0 fl 8.7-11.4 NEUTROPHIL % (test code=NT%) 37.8 % 36.0-66.0 LYMPHOCYTE % (test code=LY%) 49.1 % 16-50 MONOCYTE % (test code=MO%) 10.4 % 0.0-13.0 EOSINOPHIL % (test code=EO%) 0.5 % 0.0-4.5 BASOPHIL % (test code=BA%) 2.2 % 0.0-1.5 NEUTROPHIL # (test code=NT#) 1.5 X10(3) 1.7-7.7 LYMPHOCYTE # (test code=LY#) 2.0 X10(3) 1.0-4.8 MONOCYTE # (test code=MO#) 0.4 X10(3) 0.0-0.89 EOSINOPHIL # (test code=EO#) 0.0 X10(3) 0.0-0.6 BASOPHIL # (test code=BA#) 0.1 X10(3) 0.0-0.2 URINALYSIS W REFLEX [id number] 14:47:00 Test Item Value Reference Range Comments UA COLOR (test code=COLU) YELLOW YELLOW UA APPEARANCE (test code=APPU) CLEAR CLEAR UA GLUCOSE DIPSTICK (test code=DGLUU) NORMAL mg/dl NORMAL UA BILIRUBIN DIPSTICK (test code=BILU) NEGATIVE mg/dl NEGATIVE UA KETONE DIPSTICK (test code=KETU) NEGATIVE mg/dl NEGATIVE UA SPECIFIC GRAVITY (test code=SGU) 1.005 1.001-1.035 UA BLOOD DIPSTICK (test code=JIMMY) NEGATIVE /UL NEGATIVE UA PH DIPSTICK (test code=SILAS) 7.0 4.6-8.0 UA PROTEIN DIPSTICK (test code=PROU) NEGATIVE mg/dl NEGATIVE UA UROBILINIOGEN DIPSTICK (test code=URO) NORMAL mg/dl NORMAL UA NITRITE DIPSTICK (test code=ANISH) NEGATIVE NEGATIVE UA LEUKOCYTE ESTERASE DIPSTICK (test NEGATIVE /UL NEGATIVE code=LEUU) UA COMMENT (test code=COMU) UA MICROSCOPIC NEEDED? (test code=UAMICRO) URINALYSIS W REFLEX [id number] 14:47:00 Test Item Value Reference Range Comments UA COLOR (test code=COLU) YELLOW YELLOW UA APPEARANCE (test code=APPU) CLEAR CLEAR UA GLUCOSE DIPSTICK (test code=DGLUU) NORMAL mg/dl NORMAL UA BILIRUBIN DIPSTICK (test code=BILU) NEGATIVE mg/dl NEGATIVE UA KETONE DIPSTICK (test code=KETU) NEGATIVE mg/dl NEGATIVE UA SPECIFIC GRAVITY (test code=SGU) 1.005 1.001-1.035 UA BLOOD DIPSTICK (test code=JIMMY) NEGATIVE /UL NEGATIVE UA PH DIPSTICK (test code=SILAS) 7.0 4.6-8.0 UA PROTEIN DIPSTICK (test code=PROU) NEGATIVE mg/dl NEGATIVE UA UROBILINIOGEN DIPSTICK (test code=URO) NORMAL mg/dl NORMAL UA NITRITE DIPSTICK (test code=ANISH) NEGATIVE NEGATIVE UA LEUKOCYTE ESTERASE DIPSTICK (test NEGATIVE /UL NEGATIVE code=LEUU) UA COMMENT (test code=COMU) CLN CATCH UA MICROSCOPIC NEEDED? (test code=UAMICRO) N=NO UA MICRO
[2019-02-28] MEDS ORDERED: NA CHLORIDE 0.9% 1,000 ML ONE (03:05)
[2019-02-28 03:15] LABS: Absolute Lymphocytes (CBC) 1.4 K/uL (0.7-4.9); Basophils % 0.3 % (0-1.3); Eosinophils % 1.1 % (0-4.4); Hematocrit 40.2 % (36.0-45.0); Lymphocytes % 18.8 % (15.3-44.8); MPV 9.1 fL (7.6-11.3); Monocytes % 7.1 % (3.3-12.3); RBC Red Blood Cell Count 4.42 M/uL (3.86-4.86)
[2019-02-28 03:28] LABS: ALT/SGPT 31 U/L (12-78); AST/SGOT 28 U/L (15-37); Albumin 3.5 g/dL (3.4-5.0); Alkaline Phosphatase 117 U/L (45-117); BUN Blood Urea Nitrogen 21 mg/dL (7-18); Bicarbonate 27 mmol/L (21-32); Bilirubin Direct 0.1 mg/dL (0-0.2); Bilirubin Total 0.3 mg/dL (0.2-1.0); Glucose Level 130 mg/dL (74-106); Lipase 141 U/L (73-393); Potassium 3.6 mmol/L (3.5-5.1); Protein, Total 7.4 g/dL (6.4-8.2); Sodium Level 144 mmol/L (136-145); Troponin (Emerg Dept Use Only) < 0.02 ng/mL (0.0-0.045)
--- NOTE | 2019-02-28 06:13 | ER ---
Nurse's Notes [facility] Name: Heaven Saldivar Age: 78 yrs Sex: Female : 1940 Arrival Date: 02/28/2019 Time: 02:11 Bed 20 Private MD: Lorena Scruggs R Diagnosis: Upper abdominal pain. Distended gallbladder Presentation: 02/28 02:32 Presenting complaint: Patient states: that last night she started to have upper abd fc pain that radiates to left shoulder. She was also having nausea, vomiting, SOB, and is cold, clammy and diaphoretic. Pt does complain of bilateral lower back (kidney) pain. Transition of care: patient was not received from another setting of care. Onset of symptoms was February 27, 2019. Risk Assessment: Do you want to hurt yourself or someone else? Patient reports no desire to harm self or others. Initial Sepsis Screen: Does the patient meet any 2 criteria? No. Patient's initial sepsis screen is negative. Does the patient have a suspected source of infection? No. Patient's initial sepsis screen is negative. Care prior to arrival: None. 02:32 Method Of Arrival: Ambulatory fc 02:32 Acuity: JOSÉ MIGUEL 3 fc Triage Assessment: 02:37 General: Appears in no apparent distress. comfortable, Behavior is calm, cooperative, cc3 appropriate for age. GI: Reports upper abdominal pain. Historical: - Allergies: 02:38 Codeine; fc - Home Meds: 02:38 amlodipine 10 mg tab 1 tab once daily [Active]; atorvastatin 10 mg Oral tab 1 tab once fc daily [Active]; oxybutynin chloride 5 mg Oral tab 1 tab 2 times per day [Active]; sertraline 25 mg Oral tab 1 tab once daily [Active]; - PMHx: 02:38 Hyperlipidemia; Hypertension; fc - PSHx: 02:38 Appendectomy; left mastectomy; fc - Immunization history:: Last tetanus immunization: unknown. - Social history:: Smoking status: Patient/guardian denies using tobacco, Patient/guardian denies using alcohol, street drugs. - Ebola Screening: : Patient negative for fever greater than or equal to 101.5 degrees Fahrenheit, and additional compatible Ebola Virus Disease symptoms Patient denies exposure to infectious person Patient denies travel to an Ebola-affected area in the 21 days before illness onset. Screenin:36 Abuse screen: Denies threats or abuse. Nutritional screening: No deficits noted. fc Tuberculosis screening: No symptoms or risk factors identified. Fall Risk None identified. Assessment: 02:37 General: Appears in no apparent distress. comfortable, Behavior is calm, cooperative, cc3 appropriate for age. Pain: Denies pain. Neuro: Level of Consciousness is awake, alert, obeys commands, Oriented to person, place, time, situation, Appropriate for age. Cardiovascular: Capillary refill < 3 seconds Patient's skin is warm and dry. Respiratory: Airway is patent Respiratory effort is even, unlabored, Respiratory pattern is regular, symmetrical. GI: Abdomen is round non-distended. : No signs and/or symptoms were reported regarding the genitourinary system. EENT: No signs and/or symptoms were reported regarding the EENT system. Derm: Skin is intact, is healthy with good turgor, Skin is pink, warm \T\ dry. normal. Musculoskeletal: Circulation, motion, and sensation intact. Range of motion: intact in all extremities. 03:15 Reassessment: Patient appears in no apparent distress at this time. Patient and/or cc3 family updated on plan of care and expected duration. Pain level reassessed. Patient is alert, oriented x 3, equal unlabored respirations, skin warm/dry/pink. Patient finished her oral contrast, predictive maintenance technician Stacia informed. 04:35 Reassessment: Patient appears in no apparent distress at this time. Patient and/or cc3 family updated on plan of care and expected duration. Pain level reassessed. Patient is alert, oriented x 3, equal unlabored respirations, skin warm/dry/pink. Patient taken to CT scan department by wheelchair by atm technician Stacia. Patient denies pain at this time. 05:08 Reassessment: Patient appears in no apparent distress at this time. Patient and/or cc3 family updated on plan of care and expected duration. Pain level reassessed. Patient is alert, oriented x 3, equal unlabored respirations, skin warm/dry/pink. Patient came back from CT scan department, awaiting result. Patient denies pain at this time. 06:20 Reassessment: Patient appears in no apparent distress at this time. Patient and/or cc3 family updated on plan of care and expected duration. Pain level reassessed. Patient is alert, oriented x 3, equal unlabored respirations, skin warm/dry/pink. Dr. Alvarez discharged the patient home with prescription given. IV cannula removed and patient left ER vitally stable and ambulatory with her . No valuables left in the patient's room. Patient denies pain at this time. Patient states feeling better. Patient states symptoms have improved. Vital Signs: 02:32 BP 141 / 42; Pulse 56; Resp 18; Temp 97.7(O); Pulse Ox 97% on R/A; Weight 78.93 kg (R); fc Height 4 ft. 7 in. (139.70 cm) (R); Pain 8/10; 03:37 BP 168 / 64; Pulse 59; Resp 18 S; Pulse Ox 96% on R/A; cc3 04:15 BP 156 / 57; Pulse 60; Resp 17 S; Pulse Ox 98% on R/A; cc3 06:15 BP 149 / 88; Pulse 61; Resp 17 S; Pulse Ox 98% on R/A; cc3 02:32 Body Mass Index 40.44 (78.93 kg, 139.70 cm) fc ED Course: 02:11 Patient arrived in ED. am2 02:11 Lorena Scruggs MD is Private Physician. am2 02:31 Dex Alvarez MD is Attending Physician. pkl 02:32 Arm band placed on Patient placed in an exam room, on a stretcher. fc 02:36 Triage completed. fc 02:37 Breanna Perez is Primary Nurse. cc3 02:37 Patient has correct armband on for positive identification. Placed in gown. Bed in low fc position. Call light in reach. Side rails up X 1. environmental monitoring technician on. Pulse ox on. NIBP on. 02:37 No provider procedures requiring assistance completed. fc 02:55 Inserted saline lock: 22 gauge in right antecubital area, using aseptic technique. cc3 Blood collected. inserted by vehicle maintenance technician Wale. 04:51 CT Abd/Pelvis - PO and IV Contrast In Process Unspecified. EDMS 06:12 Lorena Scruggs MD is Referral Physician. pkl 06:20 IV discontinued, intact, bleeding controlled, No redness/swelling at site. Pressure cc3 dressing applied. Administered Medications: 03:00 Drug: NS 0.9% 1000 ml Route: IV; Rate: 125 ml/hr; Site: right antecubital; cc3 06:20 Follow up: Response: No adverse reaction; IV Status: Order to discontinue infusion; IV cc3 Intake: 375ml ; Patient discharged home Intake: 06:20 IV: 375ml; Total: 375ml. cc3 Outcome: 06:13 Discharge ordered by . [email or web address] 06:20 Discharged to home ambulatory, with family. cc3 06:20 Condition: stable 06:20 Discharge instructions given to patient, Instructed on discharge instructions, follow up and referral plans. medication usage, Demonstrated understanding of instructions, follow-up care, medications, Prescriptions given X 1. 06:29 Patient left the ED. cc3 Signatures: Dispatcher [employer] EDMS Dex Alvarez MD MD pkl Chretien, Felicia RN RN Amy Go Charlene cc3 Corrections: (The following items were deleted from the chart) 04:47 03:18 Reassessment: Patient appears in no apparent distress at this time. Patient cc3 and/or family updated on plan of care and expected duration. Pain level reassessed. Patient is alert, oriented x 3, equal unlabored respirations, skin warm/dry/pink. Patient finished her oral contrast, predictive maintenance technician Stacia marti. cc3
--- NOTE | 2019-02-28 06:14 | EDPHYS ---
Physician Documentation [facility] Name: Heaven Saldivar Age: 78 yrs Sex: Female : 1940 Arrival Date: 02/28/2019 Time: 02:11 Bed 20 Private MD: Lorena Scruggs R ED Physician Dex Alvarez HPI: 02/28 02:41 This 78 yrs old Female presents to ER via Ambulatory with complaints of pkl Nausea/Vomiting, Abdominal Pain. 02:42 The patient presents with abdominal pain in the upper abdomen. Onset: The pkl symptoms/episode began/occurred last night. The symptoms radiate to the left shoulder. Associated signs and symptoms: Pertinent positives: nausea and vomiting. Historical: - Allergies: 02:38 Codeine; fc - Home Meds: 02:38 amlodipine 10 mg tab 1 tab once daily [Active]; atorvastatin 10 mg Oral tab 1 tab once fc daily [Active]; oxybutynin chloride 5 mg Oral tab 1 tab 2 times per day [Active]; sertraline 25 mg Oral tab 1 tab once daily [Active]; - PMHx: 02:38 Hyperlipidemia; Hypertension; fc - PSHx: 02:38 Appendectomy; left mastectomy; fc - Immunization history:: Last tetanus immunization: unknown. - Social history:: Smoking status: Patient/guardian denies using tobacco, Patient/guardian denies using alcohol, street drugs. - Ebola Screening: : Patient negative for fever greater than or equal to 101.5 degrees Fahrenheit, and additional compatible Ebola Virus Disease symptoms Patient denies exposure to infectious person Patient denies travel to an Ebola-affected area in the 21 days before illness onset. ROS: 02:42 Eyes: Negative for injury, pain, redness, and discharge, ENT: Negative for injury, pkl pain, and discharge, Neck: Negative for injury, pain, and swelling, Cardiovascular: Negative for chest pain, palpitations, and edema, Respiratory: Negative for shortness of breath, cough, wheezing, and pleuritic chest pain. 02:42 Abdomen/GI: Positive for abdominal pain, nausea and vomiting, of the right upper quadrant and left upper quadrant. 02:42 Back: Negative for acute changes. 02:42 : Negative for urinary symptoms. 02:42 MS/extremity: Negative for acute changes. 02:42 Skin: Negative for rash. 02:42 Neuro: Negative for altered mental status. Exam: 02:42 Head/Face: Normocephalic, atraumatic. Eyes: Pupils equal round and reactive to light, pkl extra-ocular motions intact. Lids and lashes normal. Conjunctiva and sclera are non-icteric and not injected. Cornea within normal limits. Periorbital areas with no swelling, redness, or edema. ENT: Nares patent. No nasal discharge, no septal abnormalities noted. Tympanic membranes are normal and external auditory canals are clear. Oropharynx with no redness, swelling, or masses, exudates, or evidence of obstruction, uvula midline. Mucous membranes moist. Neck: Trachea midline, no thyromegaly or masses palpated, and no cervical lymphadenopathy. Supple, full range of motion without nuchal rigidity, or vertebral point tenderness. No Meningismus. Chest/axilla: Normal chest wall appearance and motion. Nontender with no deformity. No lesions are appreciated. Cardiovascular: Regular rate and rhythm with a normal S1 and S2. No gallops, murmurs, or rubs. Normal PMI, no JVD. No pulse deficits. Respiratory: Lungs have equal breath sounds bilaterally, clear to auscultation and percussion. No rales, rhonchi or wheezes noted. No increased work of breathing, no retractions or nasal flaring. 02:42 Abdomen/GI: Bowel sounds: active, Palpation: soft, mild abdominal tenderness, in the right upper quadrant and left upper quadrant. 02:42 Back: Exam negative for acute changes. 02:42 : Exam negative for acute changes. 02:42 Musculoskeletal/extremity: Exam is negative for acute changes. 02:42 Skin: Exam negative for rash. 02:42 Neuro: Orientation: appropriate for stated age, Mentation: is normal, Cranial nerves: grossly normal, Motor: is normal. Vital Signs: 02:32 BP 141 / 42; Pulse 56; Resp 18; Temp 97.7(O); Pulse Ox 97% on R/A; Weight 78.93 kg (R); fc Height 4 ft. 7 in. (139.70 cm) (R); Pain 8/10; 03:37 BP 168 / 64; Pulse 59; Resp 18 S; Pulse Ox 96% on R/A; cc3 04:15 BP 156 / 57; Pulse 60; Resp 17 S; Pulse Ox 98% on R/A; cc3 06:15 BP 149 / 88; Pulse 61; Resp 17 S; Pulse Ox 98% on R/A; cc3 02:32 Body Mass Index 40.44 (78.93 kg, 139.70 cm) fc MDM: 02:32 Patient medically screened. pkl 06:06 Data reviewed: vital signs, nurses notes, lab test result(s), EKG, radiologic studies, pkl CT scan. ED course: Discussed lab. and CT Scan results with patient. Patient said she is now pain free. Advised gallbladder US and HIDA Scan for further evaluations as outpatient. Patient said she has appt. with her PCP ( Dr. Sandoval ) tomorrow and will ask for these tests to be done.. 02/28 02:40 Order name: Basic Metabolic Panel pkl 02/28 02:40 Order name: CBC with Diff pkl 02/28 02:40 Order name: Creatinine for Radiology; Complete Time: 04:39 pkl 02/28 02:40 Order name: Hepatic Function; Complete Time: 04:39 pkl 02/28 02:40 Order name: Lipase; Complete Time: 04:39 pkl 02/28 02:40 Order name: Troponin (emerg Dept Use Only); Complete Time: 04:39 pkl 02/28 02:40 Order name: IV Saline Lock; Complete Time: 03:04 pkl 02/28 02:40 Order name: Labs collected and sent; Complete Time: 03:04 pkl 02/28 02:40 Order name: EKG; Complete Time: 02:42 pkl 02/28 02:40 Order name: CT Abd/Pelvis - PO and IV Contrast pkl 02/28 02:42 Order name: Basic Metabolic Panel; Complete Time: 04:39 EDMS 02/28 02:42 Order name: CBC with Automated Diff; Complete Time: 04:39 EDMS Administered Medications: 03:00 Drug: NS 0.9% 1000 ml Route: IV; Rate: 125 ml/hr; Site: right antecubital; cc3 06:20 Follow up: Response: No adverse reaction; IV Status: Order to discontinue infusion; IV cc3 Intake: 375ml ; Patient discharged home Disposition: 02/28/19 06:13 Discharged to Home. Impression: Upper abdominal pain. Distended gallbladder. - Condition is Stable. - Prescriptions for Ultram 50 mg Oral Tablet - take 1 tablet by ORAL route every 8 hours As needed; 15 tablet. - Medication Reconciliation Form, Thank You Letter, Antibiotic Education, Prescription Opioid Use form. - Follow up: Lorena Scruggs MD; When: Tomorrow; Reason: Re-evaluation by your physician. - Problem is new. - Symptoms are resolved. Signatures: Dispatcher [employer] EDOK Dex Alvarez MD MD pkl Sara Finch, RN RN Breanna Perez cc3 Corrections: (The following items were deleted from the chart) 06:29 06:13 02/28/2019 06:13 Discharged to Home. Impression: Upper abdominal pain. Distended cc3 gallbladder. Condition is Stable. Forms are Medication Reconciliation Form, Thank You Letter, Antibiotic Education, Prescription Opioid Use. Follow up: Lorena Scruggs; When: Tomorrow; Reason: Re-evaluation by your physician. Problem is new. Symptoms are resolved. pkl
--- NOTE | 2019-02-28 08:41 | EKG ---
Test Date: 2019-02-28 Test Time: 02:37:34 Nanotechnology Engineering Technician: AG3 MEASUREMENT RESULTS: Intervals: Rate: 53 [place]: 208 QRSD: 154 QT: 502 QTc: 471 [place]: P: 56 [place]: 208 QRS: -51 T: 4 INTERPRETIVE STATEMENTS: Sinus bradycardia Right bundle branch block Left anterior fascicular block Bifascicular block Voltage criteria for left ventricular hypertrophy Cannot rule out Septal infarct, age undetermined Abnormal ECG Compared to ECG 07/16/2018 11:16:09 Left anterior fascicular block now present Bifascicular block now present Myocardial infarct finding now present Junctional rhythm no longer present Left-axis deviation no longer present T-wave abnormality no longer present Electronically Signed On 02-28-19 08:40:53 CDT by Micah Weber
--- NOTE | 2019-03-01 10:38 | RAD REPORT ---
EXAM DESCRIPTION: CT - Abdomen Pelvis W Contrast - 02/28/2019 11:31 pm CLINICAL HISTORY: The patient is 78 years old and is Female; ABD PAIN TECHNIQUE: Axial computed tomography images of the abdomen and pelvis with intravenous contrast. S agittal and coronal reformatted images were created and reviewed. This CT exam was performed using one or more of the following dose reduction techniques: automated exposure control, adjustment of t he mA and/or kV according to patient size, and/or use of iterative reconstruction technique. COMPARISON: No relevant prior studies available. FINDINGS: LUNG BASES: Unremarkable. No mass. No consolidation. ABDOMEN: LIVER: Unremarkable. No mass. GALLBLADDER AND BILE DUCTS: The gallbladder is distended. No calcified gallstones or ductal dila tation is seen. PANCREAS: The pancreas is atrophic. SPLEEN: Unremarkable. ADRENALS: Unremarkable. No mass. KIDNEYS AND URETERS: Bilateral low attenuating renal lesions are present, the largest of which m easures approximately 0.9 cm. Findings are suggestive of cysts. No follow-up imaging is recommended. The kidneys enhance symmetrically. No obstructing renal or ureteral calculus is seen. STOMACH AND BOWEL: The stomach is minimally fluid filled. The duodenal diverticulum is noted wit hout surrounding inflammation. Contrast is noted throughout majority of the small bowel. Contrast is present throughout the right colon. A moderate to large amount of stool is present throughout the col on. No evidence of bowel obstruction. No significant bowel wall thickening. Colonic diverticulosis is noted, without associated inflammatory changes to suggest diverticulitis. PELVIS: APPENDIX: No findings to suggest acute appendicitis. BLADDER: Unremarkable. No mass. REPRODUCTIVE: Unremarkable as visualized. ABDOMEN and PELVIS: INTRAPERITONEAL SPACE: Unremarkable. No free air. No significant fluid collection. BONES/JOINTS: Degenerative change of the spine is present. Anterolisthesis of L4 on L5 is noted. SOFT TISSUES: The soft tissues are normal. VASCULATURE: Unremarkable. No abdominal aortic aneurysm. LYMPH NODES: Unremarkable. No enlarged lymph nodes. IMPRESSION: 1. Colonic diverticulosis without evidence of diverticulitis. 2. Distended gallbladder. No calcified gallstones or ductal dilatation. However, if there is clinical concern for acute gallbladder pathology, findings could be further evaluated with ultrasound or HIDA scan. Electronically signed by: Vaishali Hdz MD 02/28/2019 5:02 AM CDT Due to temporary technical issues with the PACS/Fluency reporting system, reports are being signed by the in house radiologist as a courtesy to ensure prompt reporting. The interpreting radiologist is f ully responsible for the content of the report.
== END 2019-02-28 06:29 | disposition home or self-care (01) ==
LOC: ER 02:09
DX: K82.8 Other specified diseases of gallbladder (principal); I10 Essential (primary) hypertension; E78.5 Hyperlipidemia, unspecified; Z88.5 Allergy status to narcotic agent; Z90.12 Acquired absence of left breast and nipple
CPT/HCPCS: 96361; 93005; 85025; 80048; 36415; 80076; 84484; 83690; 74177; 96360; 99284; Q9967; J7030

== ENCOUNTER 2019-09-27 16:27 | Observation (INO) | payer OTHER ==
--- OUTSIDE RECORDS SUMMARY | 2019-09-27 16:29 | XMS REPORT ---
:1940 Author Organization [facility] Address [address] [place] [address] Care Team Providers Name Role Phone Unavailable [...] (test code=VITD) 54.3 ng/ml 30-100 COMPREHENSIVE METABOLIC [id number] 15:30:00 Test Item Value Reference Range Comments [...] formula)REFERENCE RANGE: > or=60 ml/min/1.73M2IF PATIENT IS -BULGARIAN, MULTIPLY REPORTED RESULT BY1.21. CREATININE (test code=CREAT) [...] Twice average 6.14 Three times average T4 [id number] 15:30:00 Test Item Value Reference Range Comments T4 FREE (test code=T4F) 1.05 ng/dl 0.76-1.46 THYROID STIMULATING [id number] 15:30:00 Test Item Value Reference Range Comments THYROID STIMULATING HORMONE (test code=TSH) 2.571 0.358-3.74 CBC W/AUTO [id number] 14:58:00 Test Item Value Reference Range Comments [...] code=BA#) 0.1 X10(3) 0.0-0.2 URINALYSIS W REFLEX [id number] 14:47:00 Test Item Value Reference Range Comments [...] MICROSCOPIC NEEDED? (test code=UAMICRO) URINALYSIS W REFLEX [id number] 14:47:00 Test Item Value Reference Range Comments [...]
--- NOTE | 2019-09-27 17:18 | RAD REPORT ---
EXAM DESCRIPTION: Joan Single View09/27/2019 5:10 pm CLINICAL HISTORY: Palpitations COMPARISON: 2017 FINDINGS: The lungs appear clear of acute infiltrate. The heart is normal size IMPRESSION: No acute abnormalities displayed
[2019-09-27 18:05] LABS: Absolute Lymphocytes (CBC) 2.1 K/uL (0.7-4.9); Basophils % 0.8 % (0-1.3); Lymphocytes % 30.2 % (15.3-44.8); MPV 9.4 fL (7.6-11.3); RBC Red Blood Cell Count 4.27 M/uL (3.86-4.86)
[2019-09-27 18:07] LABS: Protime INR 0.94
[2019-09-27 18:35] LABS: ALT/SGPT 25 U/L (12-78); AST/SGOT 19 U/L (15-37); Albumin 3.9 g/dL (3.4-5.0); Alkaline Phosphatase 124 U/L (45-117); BUN Blood Urea Nitrogen 23 mg/dL (7-18); Bicarbonate 27 mmol/L (21-32); Bilirubin Direct < 0.1 mg/dL (0-0.2); Bilirubin Total 0.3 mg/dL (0.2-1.0); Glucose Level 90 mg/dL (74-106); Magnesium 2.3 mg/dL (1.8-2.4); NT PRO-BNP 500 pg/mL (<450); Potassium 3.6 mmol/L (3.5-5.1); Protein, Total 8.3 g/dL (6.4-8.2); Sodium Level 142 mmol/L (136-145); Troponin (Emerg Dept Use Only) < 0.02 ng/mL (0.0-0.045)
--- NOTE | 2019-09-27 18:51 | ER ---
Nurse's Notes [facility] Name: Heaven Saldivar Age: 79 yrs Sex: Female : 1940 Arrival Date: 09/27/2019 Time: 16:29 Bed 30 Private MD: Diagnosis: Bradycardia, unspecified;Ventricular premature depolarization;Dyspnea;Essential (primary) hypertension Presentation: 09/27 16:35 Presenting complaint: Patient states: heart palpitations since 0900. Transition of care: patient was not received from another setting of care. Onset of symptoms was September 27, 2019 at 09:00. Risk Assessment: Do you want to hurt yourself or someone else? Patient reports no desire to harm self or others. Initial Sepsis Screen: Does the patient meet any 2 criteria? No. Patient's initial sepsis screen is negative. Does the patient have a suspected source of infection? No. Patient's initial sepsis screen is negative. Care prior to arrival: None. 16:35 Method Of Arrival: Ambulatory 16:35 Acuity: JOSÉ MIGUEL 3 ch Historical: - Allergies: 16:39 Codeine; - Home Meds: 16:39 telmisartan-amlodipine 40-10 mg oral tab 1 tab once daily [Active]; aspirin 81 mg Oral ch chew 1 tab once daily [Active]; atorvastatin 10 mg oral tab 1 tab once daily [Active]; meloxicam 15 mg oral tab 1 tab once daily [Active]; oxybutynin chloride 5 mg Oral tab 1 tab [Active]; sertraline 50 mg oral tab 1 tab once daily [Active]; Vitamin D Oral [Active]; - PMHx: 16:39 Hyperlipidemia; Hypertension; breast cancer L; - PSHx: 16:39 Appendectomy; left mastectomy; bladder sling; - Immunization history:: Adult Immunizations up to date, Flu vaccine is up to date. - Coronavirus screen:: The patient has NOT traveled to [place], [place], or [place] in the past 14 days. The patient has NOT had contact with known/suspected case of Coronavirus?. - Social history:: Smoking status: Patient denies any tobacco usage or history of. Patient/guardian denies using alcohol, street drugs. - Family history:: not pertinent. - Ebola Screening: : Patient negative for fever greater than or equal to 101.5 degrees Fahrenheit, and additional compatible Ebola Virus Disease symptoms Patient denies exposure to infectious person Patient denies travel to an Ebola-affected area in the 21 days before illness onset No symptoms or risks identified at this time. Screenin:00 Abuse screen: Denies threats or abuse. Nutritional screening: No deficits noted. vc Tuberculosis screening: No symptoms or risk factors identified. Fall Risk None identified. Assessment: 17:00 General: Appears in no apparent distress. comfortable, Behavior is calm, cooperative, vc appropriate for age. Pain: Denies pain. Neuro: Level of Consciousness is awake, alert, obeys commands, Oriented to person, place, time. Cardiovascular: Patient's skin is warm and dry. Cardiovascular: Reports palpitations. Respiratory: Airway is patent Trachea midline Respiratory effort is even, unlabored. GI: Abdomen is round non-distended. : No signs and/or symptoms were reported regarding the genitourinary system. EENT: No signs and/or symptoms were reported regarding the EENT system. Derm: Skin temperature is warm. Musculoskeletal: Circulation, motion, and sensation intact. Range of motion: intact in all extremities. 18:00 Reassessment: Patient and/or family updated on plan of care and expected duration. Pain vc level reassessed. Patient is alert, oriented x 3, equal unlabored respirations, skin warm/dry/pink. 19:00 Reassessment: Patient and/or family updated on plan of care and expected duration. Pain vc level reassessed. Patient is alert, oriented x 3, equal unlabored respirations, skin warm/dry/pink. Patient denies pain at this time. 20:00 Reassessment: Patient and/or family updated on plan of care and expected duration. Pain vc level reassessed. Patient is alert, oriented x 3, equal unlabored respirations, skin warm/dry/pink. patient ambulated to bathroom. Patient consumed 1 sandwich, 1 fruit cup, and 2 juices. Patient denies pain at this time. Vital Signs: 16:39 BP 161 / 108; Pulse 60; Resp 14; Temp 98.4; Pulse Ox 99% on R/A; Weight 81.65 kg; ch Height 4 ft. 7 in. (139.70 cm); Pain 0/10; 17:30 BP 165 / 110; Pulse 67; Resp 20; Pulse Ox 100% on R/A; Pain 0/10; vc 18:00 Pulse 59; Pulse Ox 100% on R/A; vc 18:30 BP 155 / 110; Pulse 70; Resp 24; Pulse Ox 98% on R/A; vc 19:30 BP 152 / 108; Pulse 64; Resp 20; Pulse Ox 99% on R/A; Pain 0/10; vc 20:30 BP 153 / 114; Pulse 75; Resp 17; Pulse Ox 97% on R/A; Pain 0/10; vc 16:39 Body Mass Index 41.84 (81.65 kg, 139.70 cm) 16:39 HR is 60's to 90's ED Course: 16:29 Patient arrived in ED. as 16:36 Triage completed. 16:39 Arm band placed on left wrist. Patient placed in an exam room, on a stretcher. 16:45 Lamin Greene MD is Attending Physician. antoinette 17:18 Bethany Roberts, RN is Primary Nurse. vc 17:20 EKG done, by ED staff, reviewed by Lamin Greene MD. jp3 17:45 Initial lab(s) drawn, by or, sent to lab. Urine collected: clean catch specimen, clear, jp3 marina colored. Inserted saline lock: 20 gauge in right antecubital area, using aseptic technique. Blood collected. 17:54 Safety checks: Family/friend present: yes. Family/friends encouraged to stay with jp3 patient. Placed in gown. Bed in low position. Call light in reach. Side rails up X 1. Side rails up X2. Warm blanket given. Pillow given. Verbal reassurance given. manager monitoring on. Pulse ox on. NIBP on. 17:55 TSH Sent. jp3 17:55 Urine Culture Sent. jp3 17:56 Troponin (emerg Dept Use Only) Sent. jp3 17:56 CBC with Diff Sent. jp3 17:56 PT-INR Sent. jp3 17:56 LFT's Sent. jp3 17:56 NT PRO-BNP Sent. jp3 17:56 Magnesium Sent. jp3 17:56 Basic Metabolic Panel Sent. jp3 18:49 Johnnie Garcia MD is Hospitalizing Provider. antoinette 20:46 No provider procedures requiring assistance completed. Patient admitted, IV remains in vc place. Administered Medications: No medications were administered Outcome: 18:50 Decision to Hospitalize by Provider. antoinette 20:46 Condition: good 20:46 Instructed on the need for admit. 21:17 Admitted to Med/surg accompanied by tech, via wheelchair, on monitor, with chart, vc Report called to Jacey 21:18 Patient left the ED. vc Signatures: [place] Martínez, RN RN Lamin Mercedes MD MD cha Martinez, Amelia as Pisarski, Jacob jp3 Bethany Roberts RN RN vc
--- NOTE | 2019-09-27 18:51 | EDPHYS ---
Physician Documentation [facility] Name: Heaven Saldivar Age: 79 yrs Sex: Female : 1940 Arrival Date: 09/27/2019 Time: 16:29 Bed 30 Private MD: Lamin Recio HPI: 09/27 17:32 This 79 yrs old Female presents to ER via Ambulatory with complaints of antoinette Palpitations. 17:32 The patient presents with a history of irregular heart beat, heart racing. Context: The antoinette symptoms occur at rest. Onset: The symptoms/episode began/occurred 2 day(s) ago. Duration: The patient or guardian reports multiple episodes, with no pattern. Modifying factors: The symptoms are aggravated by nothing. The symptoms are alleviated by nothing. Associated signs and symptoms: The patient has no apparent associated signs or symptoms. Historical: - Allergies: 16:39 Codeine; ch - Home Meds: 16:39 telmisartan-amlodipine 40-10 mg oral tab 1 tab once daily [Active]; aspirin 81 mg Oral ch chew 1 tab once daily [Active]; atorvastatin 10 mg oral tab 1 tab once daily [Active]; meloxicam 15 mg oral tab 1 tab once daily [Active]; oxybutynin chloride 5 mg Oral tab 1 tab [Active]; sertraline 50 mg oral tab 1 tab once daily [Active]; Vitamin D Oral [Active]; - PMHx: 16:39 Hyperlipidemia; Hypertension; breast cancer L; ch - PSHx: 16:39 Appendectomy; left mastectomy; bladder sling; ch - Immunization history:: Adult Immunizations up to date, Flu vaccine is up to date. - Coronavirus screen:: The patient has NOT traveled to [place], [place], or [place] in the past 14 days. The patient has NOT had contact with known/suspected case of Coronavirus?. - Social history:: Smoking status: Patient denies any tobacco usage or history of. Patient/guardian denies using alcohol, street drugs. - Family history:: not pertinent. - Ebola Screening: : Patient negative for fever greater than or equal to 101.5 degrees Fahrenheit, and additional compatible Ebola Virus Disease symptoms Patient denies exposure to infectious person Patient denies travel to an Ebola-affected area in the 21 days before illness onset No symptoms or risks identified at this time. ROS: 17:32 Constitutional: Negative for fever, chills, and weight loss, Eyes: Negative for injury, antoinette pain, redness, and discharge, ENT: Negative for injury, pain, and discharge, Neck: Negative for injury, pain, and swelling, Respiratory: Negative for shortness of breath, cough, wheezing, and pleuritic chest pain, Abdomen/GI: Negative for abdominal pain, nausea, vomiting, diarrhea, and constipation, Back: Negative for injury and pain, : Negative for injury, bleeding, discharge, and swelling, MS/Extremity: Negative for injury and deformity, Skin: Negative for injury, rash, and discoloration, Neuro: Negative for headache, weakness, numbness, tingling, and seizure, Psych: Negative for depression, anxiety, suicide ideation, homicidal ideation, and hallucinations, Allergy/Immunology: Negative for hives, rash, and allergies, Endocrine: Negative for neck swelling, polydipsia, polyuria, polyphagia, and marked weight changes, Hematologic/Lymphatic: Negative for swollen nodes, abnormal bleeding, and unusual bruising. 17:32 Cardiovascular: Positive for palpitations. Exam: 17:32 Constitutional: This is a well developed, well nourished patient who is awake, alert, antoinette and in no acute distress. Head/Face: Normocephalic, atraumatic. Eyes: Pupils equal round and reactive to light, extra-ocular motions intact. Lids and lashes normal. Conjunctiva and sclera are non-icteric and not injected. Cornea within normal limits. Periorbital areas with no swelling, redness, or edema. ENT: Nares patent. No nasal discharge, no septal abnormalities noted. Tympanic membranes are normal and external auditory canals are clear. Oropharynx with no redness, swelling, or masses, exudates, or evidence of obstruction, uvula midline. Mucous membranes moist. Neck: Trachea midline, no thyromegaly or masses palpated, and no cervical lymphadenopathy. Supple, full range of motion without nuchal rigidity, or vertebral point tenderness. No Meningismus. Chest/axilla: Normal chest wall appearance and motion. Nontender with no deformity. No lesions are appreciated. Respiratory: Lungs have equal breath sounds bilaterally, clear to auscultation and percussion. No rales, rhonchi or wheezes noted. No increased work of breathing, no retractions or nasal flaring. Abdomen/GI: Soft, non-tender, with normal bowel sounds. No distension or tympany. No guarding or rebound. No evidence of tenderness throughout. Back: No spinal tenderness. No costovertebral tenderness. Full range of motion. Female : Normal external genitalia. Skin: Warm, dry with normal turgor. Normal color with no rashes, no lesions, and no evidence of cellulitis. MS/ Extremity: Pulses equal, no cyanosis. Neurovascular intact. Full, normal range of motion. Neuro: Awake and alert, GCS 15, oriented to person, place, time, and situation. Cranial nerves II-XII grossly intact. Motor strength 5/5 in all extremities. Sensory grossly intact. Cerebellar exam normal. Normal gait. Psych: Awake, alert, with orientation to person, place and time. Behavior, mood, and affect are within normal limits. 17:32 Cardiovascular: Rate: normal, Rhythm: regular, Pulses: Pulses are 4+ in bilateral radial, brachial, femoral, popliteal, posterior tibial and and dorsalis pedis arteries.. Heart sounds: normal, Edema: is not appreciated, JVD: is not appreciated. Vital Signs: 16:39 BP 161 / 108; Pulse 60; Resp 14; Temp 98.4; Pulse Ox 99% on R/A; Weight 81.65 kg; ch Height 4 ft. 7 in. (139.70 cm); Pain 0/10; 17:30 BP 165 / 110; Pulse 67; Resp 20; Pulse Ox 100% on R/A; Pain 0/10; vc 18:00 Pulse 59; Pulse Ox 100% on R/A; vc 18:30 BP 155 / 110; Pulse 70; Resp 24; Pulse Ox 98% on R/A; vc 19:30 BP 152 / 108; Pulse 64; Resp 20; Pulse Ox 99% on R/A; Pain 0/10; vc 20:30 BP 153 / 114; Pulse 75; Resp 17; Pulse Ox 97% on R/A; Pain 0/10; vc 16:39 Body Mass Index 41.84 (81.65 kg, 139.70 cm) 16:39 HR is 60's to 90's MDM: 16:45 Patient medically screened. [facility] 17:34 Data reviewed: vital signs, nurses notes, lab test result(s), hepatic panel, EKG, antoinette radiologic studies. 09/27 16:47 Order name: Basic Metabolic Panel [facility] 09/27 16:47 Order name: CBC with Diff [facility] 09/27 16:47 Order name: LFT's [facility] 09/27 16:47 Order name: Magnesium [facility] 09/27 16:47 Order name: NT PRO-BNP [facility] 09/27 16:47 Order name: PT-INR [facility] 09/27 16:47 Order name: Troponin (emerg Dept Use Only) [facility] 09/27 16:47 Order name: Urine Culture [facility] 09/27 16:47 Order name: TSH [facility] 09/27 18:08 Order name: CBC with Automated Diff; Complete Time: 18:42 EDMS 09/27 18:22 Order name: Protime (+INR); Complete Time: 18:42 EDMS 09/27 18:36 Order name: Basic Metabolic Panel; Complete Time: 18:42 EDMS 09/27 18:36 Order name: Liver (Hepatic) Function; Complete Time: 18:42 EDMS 09/27 18:36 Order name: Urine Dipstick--Ancillary (enter results) [facility] 09/27 16:47 Order name: XRAY Chest (1 view) [facility] 09/27 16:47 Order name: EKG; Complete Time: 16:48 [facility] 09/27 16:47 Order name: Cardiac monitoring; Complete Time: 17:55 [facility] 09/27 16:47 Order name: EKG - Nurse/Tech; Complete Time: 16:59 [facility] 09/27 16:47 Order name: IV Saline Lock; Complete Time: 17:55 [facility] 09/27 16:47 Order name: Labs collected and sent; Complete Time: 17:55 [facility] 09/27 16:47 Order name: O2 Per Protocol; Complete Time: 17:55 [facility] 09/27 16:47 Order name: O2 Sat Monitoring; Complete Time: 17:56 [facility] 09/27 16:47 Order name: Urine Dipstick-Ancillary (obtain specimen); Complete Time: 17:55 [facility] 09/27 17:28 Order name: RAD; Complete Time: 18:42 EDMS 09/27 18:36 Order name: Troponin (Emerg Dept Use Only); Complete Time: 18:42 EDMS 09/27 18:36 Order name: NT PRO-BNP; Complete Time: 18:42 EDMS 09/27 18:36 Order name: Magnesium; Complete Time: 18:42 EDMS 02/03 18:36 Order name: Thyroid Stimulating Hormone; Complete Time: 18:42 EDMS 02/03 19:36 Order name: Urine Dipstick-Ancillary; Complete Time: 19:52 EDMS Administered Medications: No medications were administered Disposition: 09/27/19 18:50 Hospitalization ordered by Johnnie Garcia for Observation. Preliminary diagnosis are Bradycardia, unspecified, Ventricular premature depolarization, Dyspnea, Essential (primary) hypertension. - Bed requested for Telemetry/MedSurg (observation). - Status is Observation. vc - Condition is Fair. - Problem is new. - Symptoms have improved. Signatures: Dispatcher [employer] EDMS [place] Martínez RN RN ch Webb, Martha, RN RN mw Anderson, Corey, MD MD cha Calcote, Vanessa, RN RN vc Corrections: (The following items were deleted from the chart) 19:52 18:50 Hospitalization Ordered by Johnnie Garcia MD for Observation. Preliminary antoinette diagnosis is Bradycardia, unspecified; Ventricular premature depolarization; Dyspnea. Bed requested for Telemetry/MedSurg (observation). Status is Observation. Condition is Fair. Problem is new. Symptoms have improved. antoinette 20:09 19:52 09/27/2019 18:50 Hospitalization Ordered by Johnnie Garcia MD for Observation. mw Preliminary diagnosis is Bradycardia, unspecified; Ventricular premature depolarization; Dyspnea; Essential (primary) hypertension. Bed requested for Telemetry/MedSurg (observation). Status is Observation. Condition is Fair. Problem is new. Symptoms have improved. antoinette 21:18 20:09 09/27/2019 18:50 Hospitalization Ordered by Johnnie Garcia MD for Observation. vc Preliminary diagnosis is Bradycardia, unspecified; Ventricular premature depolarization; Dyspnea; Essential (primary) hypertension. Bed requested for Telemetry/MedSurg (observation). Status is Observation. Condition is Fair. Problem is new. Symptoms have improved. mw
[2019-09-27 19:35] LABS: Urine Blood TRACE (NEG); Urine Glucose NEGATIVE (NEG); Urine Protein NEGATIVE (NEG); Urine pH 5.5 (5.0-7.0)
[2019-09-27] MEDS ORDERED: MORPHINE 2 MG/ML SYR IV PRN (20:39)
[2019-09-27] MEDS ORDERED: ONDANSETRON 4 MG/2 ML VIAL IV PRN (20:39)
[2019-09-27] MEDS ORDERED: ALBUTEROL 2.5 MG/3 ML NEB SOL NEB PRN (20:39)
[2019-09-27] MEDS ORDERED: HYDRALAZINE HCL 20 MG/ML VIAL IV PRN (20:42)
[2019-09-27] MEDS ORDERED: FUROSEMIDE 40 MG/4 ML VIAL IV ONE (20:42)
[2019-09-27] MEDS: FAMOTIDINE 20 MG TAB PO SCH (21:00)
[2019-09-27] MEDS ORDERED: ATORVASTATIN 10 MG TAB PO SCH (21:00)
[2019-09-27] MEDS ORDERED: AMLODIPINE 10 MG TAB PO SCH (21:00)
[2019-09-27 21:49] VITALS: BMI 41.8
--- NOTE | 2019-09-28 03:52 | HP ---
Date of Admission: 09/27/2019 Presenting Complaint: Palpitation and dizziness. History Of Present Illness: Ms. Heaven Canada is 79-year-old female with past medical hist ory of hypertension, hyperlipidemia, overactive bladder, history of remote breast cancer, history of chronic palpitations, intermittent, follows with Cardiology, Dr. Vazquez. She presented because of re current palpitation episode started earlier today. Was associated with some dizziness. She states s he typically gets similar palpitations in the past, but usually resolves after resting. She thinks h er palpitation episode was preceded by new onset anxiety. However, palpitations today did not resolv e with rest and patient presented to the ED. She denies any chest pain. She denies any nausea or vo miting. She felt transient dizziness. On arrival in the ED the palpitation has improved. Her heart rate was noted to be borderline bradycardic at low 60s. EKG shows complex beat. Patient is being a dmitted for further workup. She states she has not been told she needed a pacemaker in the past. Past Medical History: Significant for hypertension, hyperlipidemia, history of breast cancer. Allergies: CODEINE. Home Medications: Include telmisartan, amlodipine, aspirin, Lipitor, meloxicam, oxybutynin, centrall y, as well as vitamin D. Family History: Significant for history of CVA in the father, as well as history of coronary artery disease in the mother. Social History: Patient resides in the community. She is fully functional. 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 She admits to remote history of tobacco use. She admits to occ asional alcohol use as a social drinker. She denies any illicit drug use. Past Surgical History: Appendectomy, left mastectomy, as well as bladder sling. Review of Systems: All systems reviewed x14 were negative except as mentioned above. Physical Examination: Current Vitals: Blood pressure of 160/100, pulse rate of 60, respiratory rate of 14, temp 98.4, O2 s aturation 99 on room air. Weight 81.6 kg. General: Overweight, elderly female, not in distress. HEENT: Head is atraumatic, normocephalic. Pupils equal and reactive to light. Extraocular motor mo vement intact. Neck: No JVD. No carotid bruit. Respiratory: Good air entry with bibasilar crepitations. Cardiovascular: S1, S2. Rate and rhythm regular. No murmur. Not appreciable heart sounds. GI: Abdomen full, soft, nontender. Bowel sounds positive. Neuro: Patient is alert, oriented. Cranial nerves 2 through 12 grossly intact. Musculoskeletal: No pedal edema over lower extremities. No calf tenderness. Laboratory Data: EKG shows heart rate of [address] with complex beats. No ST-segment changes. Chest x-ray shows clear lungs with no abnormalities. WBC 6.9, hemoglobin 13, platelets 189. INR 0.9, potassium 3.6, bicarb 27, creatinine 0.8, magnesium 2.3. Troponin less than 0.02. ProBNP of 500, TSH of 2.9, calcium 9.2. Urinalysis was negative, except for trace blood. 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 2.Hypertension. 3.History of anxiety disorder. Plan: We will admit patient to observation. We will consult patient's birth certificate clerk, Dr. Vazquez. We will initiate patient's home medications, but given tachy-muriel syndrome may be beneficial to do a t rial of combined Toprol and hydralazine. We will dose amlodipine now. We will do Lovenox for DVT pr ophylaxis. We follow cardiology plan in a.m. after evaluation. Advanced directives discussed with patient. Patient wishes to be full code. Total time spent in review of record, discussion with patient, and evaluation greater than 60 minutes . Patient and daughter at bedside discussed with. EO/MODL Voice ID: [id number]
[2019-09-28 06:09] LABS: Absolute Lymphocytes (CBC) 2.1 K/uL (0.7-4.9); Basophils % 0.9 % (0-1.3); Hematocrit 36.9 % (36.0-45.0); Lymphocytes % 30.6 % (15.3-44.8); MPV 8.9 fL (7.6-11.3); RBC Red Blood Cell Count 4.07 M/uL (3.86-4.86)
--- NOTE | 2019-09-28 06:35 | EKG ---
Test Date: 2019-09-27 Test Time: 16:53:26 Parts Chaser: MARTINA MEASUREMENT RESULTS: Intervals: Rate: 64 AK: 178 QRSD: 160 QT: 492 QTc: 507 [place]: P: 65 AK: 178 QRS: -48 T: 10 INTERPRETIVE STATEMENTS: Sinus rhythm with frequent premature ventricular complexes Right bundle branch block Left axis Abnormal ECG Compared to ECG 02/28/2019 02:37:34 Ventricular premature complex(es) now present Sinus bradycardia no longer present Electronically Signed On 09-28-19 06:35:00 [employer]IST by Wilman Vazquez
[2019-09-28 07:15] LABS: ALT/SGPT 22 U/L (12-78); AST/SGOT 17 U/L (15-37); Albumin 3.4 g/dL (3.4-5.0); Alkaline Phosphatase 97 U/L (45-117); BUN Blood Urea Nitrogen 22 mg/dL (7-18); Bicarbonate 28 mmol/L (21-32); Bilirubin Total 0.4 mg/dL (0.2-1.0); Glucose Level 96 mg/dL (74-106); Potassium 3.8 mmol/L (3.5-5.1); Protein, Total 7.4 g/dL (6.4-8.2); Sodium Level 142 mmol/L (136-145); Troponin I < 0.02 ng/mL (0.0-0.045)
[2019-09-28] MEDS: FAMOTIDINE 20 MG TAB PO SCH (08:14)
[2019-09-28] MEDS ORDERED: ENOXAPARIN 40 MG/0.4 ML SQ SCH (09:00)
[2019-09-28 09:19] VITALS: BP 141/65; TEMP 98
[2019-09-28 09:27] VITALS: O2SAT 96
--- NOTE | 2019-09-28 12:43 | CON ---
History Of Present Illness: Ms. Saldivar is 79. She went to the emergency room feeling her heart pal pitate, was found to have very frequent PVCs, sometimes bigeminy, no ventricular tachycardia. She wa s placed in the hospital and observed. There was no ventricular tachycardia overnight and indeed, jimmy webb has been in sinus rhythm most of the night. She has no history of heart disease. In the past, she has had normal stress test in my office before. She has underlying hypertension, for which she take s telmisartan, amlodipine. She also takes aspirin, Lipitor, meloxicam, oxybutynin and vitamin D. Jimmy webb has had an appendectomy, mastectomy, a bladder sling. Medications: Her outpatient medications have been already noted. Physical Examination: General: She is 4 feet 7 inches, 180 pounds, obese, alert, oriented, pleasant not in distress. Lungs: Clear. Heart: Regular rate and rhythm. Abdomen: Soft. Extremities: No edema. Impression: The patient probably just has isolated premature ventricular contractions. We have not seen anything else. I would recommend that as an outpatient she undergo a nuclear stress test and ph armacologic echocardiogram and a 30-day event monitor and we will see if we need to do anything. Delores espinalight, she has been treated with her usual medicines. No beta diane was added. So, I think she i s stable enough to be discharged, do an outpatient workup for premature ventricular contractions. No additional therapy is recommended for now. JIMMY/MODL Voice ID: [id number] Report ID: [id number]
--- NOTE | 2019-09-29 02:04 | DS ---
Date of Discharge: 09/28/2019 Consultants: Dr. Vazquze with Cardiology. Discharge Diagnoses: 1.Cardiac arrhythmia, possibly tachy-muriel syndrome. 2.Essential hypertension. 3.History of anxiety disorder. Hospital Course: Patient is an 79-year-old female with past medical history of hypertension, hyperli pidemia, overactive bladder, remote history of breast cancer, chronic palpitations, comes in with diz ziness and palpitations. The patient's EKG showed some complex beats, was borderline bradycardic at 60s. No beta-diane was initiated due to that low heart rate. Patient was seen by her regular card iologist, Dr. Vazquez, who felt that this was likely due to premature ventricular contractions. He re commended outpatient followup with him to do a nuclear stress test and a 30-day event monitor. Ajay sorto was then recommended to be discharged. The patient's symptoms improved, she did not have any furt her dizziness, her blood pressure remained stable in the 130s to 140s. Her urine culture did not vivian w any growth. Electrolytes were within normal limits essentially. Chest x-ray was clear. The ajay sorto was then doing well, she was able to ambulate without any difficulty. She was asymptomatic. Marguerite trujillo was discharged home in a stable condition. Activity: As tolerated. Medications: As per medication reconciliation list. No changes to her home medications. Followup: Follow up with primary care physician in 2-3 days. Follow up with Dr. Vazquez, cardiologis t, in 1-2 weeks for event monitor and stress test. Diet: Heart healthy. Physical Examination: General: Awake, alert, and oriented x3, no acute distress, obese female. CV: S1, S2. Respiratory: Moving air well bilaterally. Abdomen: Abdomen is soft, nontender, nondistended. Positive bowel sounds. Extremities: No clubbing, cyanosis, or edema. Neurologic: Nonfocal. SA/MODL Voice ID: [id number] Report ID: [id number]
--- NOTE | 2019-10-01 08:47 | EKG ---
Test Date: 2019-09-28 Test Time: 09:58:56 [employer] [facility] [employer] Director: JUANJO MEASUREMENT RESULTS: Intervals: Rate: 85 TX: QRSD: 156 QT: 444 QTc: 528 [place]: P: TX: QRS: -55 T: 42 INTERPRETIVE STATEMENTS: Sinus rhythm with frequent premature ventricular complexes Right bundle branch block Left axis Abnormal ECG Compared to ECG 09/27/2019 16:53:26 no significant change from previous ECG Electronically Signed On 10-01-19 08:46:04 CONTROL OFFICER by Wilman Vazquez
== END 2019-09-28 10:45 | disposition home or self-care (01) ==
LOC: ER 16:27 → 2ND 20:59
PROVIDERS: ADMIT Internal Medicine; ATTEND Family Medicine
DX: I49.9 Cardiac arrhythmia, unspecified (principal); I10 Essential (primary) hypertension; E78.5 Hyperlipidemia, unspecified; F41.9 Anxiety disorder, unspecified; Z85.3 Personal history of malignant neoplasm of breast
CPT/HCPCS: 93005 ×2; 87088; 85025 ×2; 87086; 80048; 36415; 83735; 85610; 80076; 84443; 81003; 84484 ×2; 80053; 83880; 71045; 99285; J1940; J1650; G0378 ×3

== ENCOUNTER 2019-11-01 09:20 | Day surgery (SDC) | payer OTHER ==
[2019-10-29 10:12] LABS: Absolute Lymphocytes (CBC) 1.9 K/uL (0.7-4.9); Basophils % 0.8 % (0-1.3); Hematocrit 36.8 % (36.0-45.0); Lymphocytes % 27.2 % (15.3-44.8); MPV 8.7 fL (7.6-11.3); RBC Red Blood Cell Count 3.98 M/uL (3.86-4.86)
[2019-10-29 10:14] LABS: Protime INR 0.96
--- OUTSIDE RECORDS SUMMARY | 2019-11-01 08:49 | XMS REPORT ---
:1940 [facility] Address [address] [place] [address] Dr. Rodriguez. [address] [place] [address] Care Team Providers Name Role Phone Unavailable Unavailable Unavailable Payers Payer Name Policy Type Policy Number Effective Date Expiration Date Problems This patient has no known problems. Allergies, Adverse Reactions, Alerts Allergy Name Allergy Status Severity Reaction(s) Onset Inactive Treating Comments Type Date Date Clinician Penicillins DA Active U 2020-0 2-27 00:00: 00 guaifenesin DA Active U 2020-0 2-27 00:00: 00 prednisone DA Active U 2020-0 2-27 00:00: 00 benzalkonium DA Active U 2020-0 chloride 2-27 00:00: 00 adhesive tape DA Active U 2020-0 2-27 00:00: 00 Penicillins DA Active U 2020-0 2-26 00:00: 00 guaifenesin DA Active U 2020-0 2-26 00:00: 00 prednisone DA Active U 2020-0 2-26 00:00: 00 benzalkonium DA Active U 2020-0 chloride 2-26 00:00: 00 adhesive tape DA Active U 2020-0 2-26 00:00: 00 codeine DA Active U 2011-0 7-24 00:00: 00 Medications This patient has no known medications. Results Test Description Test Time Test Comments Text Results Atomic Results Result Comments ELMORE 2019-10-26 COLE DIOR 14:13:00 DATE: 10/26/19 [facility] LAB LIVE PAGE 1 RUN SURGERY TIME: 1414 Specimen Inquiry RUN USER: [facility] ENT: ZINA SALDIVAR LOC: [facility] U #: [id number] AGE/SX: 78/F ROOM: RE10/21/19REG DR: Bhargav Juares Jr : 39 BED: DIS: [place] [facility] [place]: SPEC #: [id number] RECD: 10/22/19-908 STATUS: JOHNNIE RENTERIA #: [id number] DANA: 10/21/19- SUBM DR: Bhargav Juares Jr, MD ENTERED: 10/22/19-909 SP TYPE: SURGICAL OTHR DR: Gm Saldivar Jr, MD ORDERED: SURG/PATH GROSS, IMMUNOPEROXIDAS/4 GROSS DESCRIPTION: The specimen is received in formalin in a container labeled "ZINA SALDIVAR - POSTERIOR PHARYNGEAL LESION LEFT". The specimen is tear drop-shaped, measures 0.3 x 0.2 x 0.2 cm. The specimen, on one side, has a dark color. It is peripherally marked with, cross sectioned, secured in a paper envelope and entirely submitted in one cassette. COMMENT: This case will be sent to a reference laboratory for a second opinion to rule out a higher grade lesion. This case was reviewed in intradepartmental consultation for Q/A purposes by Dr. Garcia who concurs. Dr. Juares notified at 10/26/19 at 1400 hrs. >> END OF REPORT - ZINA SALDIVAR [id number] << CODES: [id number] - IMMUNOPEROXIDAS [id number] - PHARYNX, NOS COPIES TO: Gm Saldivar Jr, MD [address] [place] [address] [id number] Bhargav Juares Jr, MD [address] [place], [place] [phone] PROCEDURES: SURG/PATH GROSS (10/22/19-0910) IMMUNOPEROXIDAS ( 10/25/19-1018) TISSUES: A. PHARYNX, NOS - LEFT POSTERIOR PHARYNGEAL LESION CONTINUED ON NEXT PAGE RUN DATE: 10/26/19 [facility] LIVE PAGE 2 RUN TIME: 1414 Specimen Inquiry RUN USER: INTERFACE SPEC #: [id number] PATIENT: ZINA SALDIVAR # [id number] (Continued) ------- Surgery information Surgery date 10/21/19 Surgeon(s): BHARGAV JUARES Pre-Op Dx: POSTERIOR PHRYNGEAL LESION-LEFT Post-Op Dx: SAME Signed SIGNATURE ON FILE RobAlejandroJose Ramon 1413 END OF REPORT VITAMIN D TOTAL 25OH 2018-11-13 15:31:00 Test Item Value Reference Range Comments VITAMIN D TOTAL 25OH (test code=VITD) 54.3 ng/ml 30-100 COMPREHENSIVE METABOLIC [id number] 15:30:00 Test Item Value Reference Range Comments SODIUM (test code=NA) 134 mmol/L 136-145 POTASSIUM (test code=K) 4.0 mmol/L 3.5-5.1 CHLORIDE (test code=CL) 99 mmol/L 98-107 CARBON DIOXIDE (test code=CO2) 31 mmol/L 21-32 GLUCOSE (test code=GLU) 88 mg/dL 70-100 BLOOD UREA NITROGEN (test 15 mg/dL 7-18 code=BUN) GLOMERULAR FILTRATION RATE > 60.00 >=60 Reporting units: (test code=GFR) mL/min/1.73m\\S\\2 (Modified MDRD formula)REFERENCE RANGE: > or=60 ml/min/1.73M2IF PATIENT IS -SWISS, MULTIPLY REPORTED RESULT BY1.21. CREATININE (test code=CREAT) [...] Twice average 6.14 Three times average T4 [id number] 15:30:00 Test Item Value Reference Range Comments T4 FREE (test code=T4F) 1.05 ng/dl 0.76-1.46 THYROID STIMULATING [id number] 15:30:00 Test Item Value Reference Range Comments THYROID STIMULATING HORMONE (test code=TSH) 2.571 0.358-3.74 CBC W/AUTO [id number] 14:58:00 Test Item Value Reference Range Comments [...] code=BA#) 0.1 X10(3) 0.0-0.2 URINALYSIS W REFLEX [id number] 14:47:00 Test Item Value Reference Range Comments [...] MICROSCOPIC NEEDED? (test code=UAMICRO) URINALYSIS W REFLEX [id number] 14:47:00 Test Item Value Reference Range Comments [...]
--- OUTSIDE RECORDS SUMMARY | 2019-11-01 10:18 | XMS REPORT ---
:1940 Author Organization [facility] Address [address] [place] [address] Dr. Rodriguez. [address] [place] [address] Care Team Providers Name Role Phone Unavailable [...] Comments Text Results Atomic Results Result Comments BASCOM 2019-10-26 COLE DIOR 14:13:00 DATE: 10/26/19 [facility] LAB LIVE PAGE 1 RUN SURGERY TIME: 1414 Specimen Inquiry RUN USER: [facility] ENT: ZINA SALDIVAR LOC: [facility] U #: [id number] AGE/SX: 78/F ROOM: RE10/21/19REG DR: Bhargav Juares Jr : 38 BED: DIS: STATUS: [facility] TLOC: SPEC #: [id number] RECD: 10/22/19-908 STATUS: JOHNNIE RENTERIA #: [id number] DANA: 10/21/19- SUBM DR: Bhargav Juares Jr, [...] >> END OF REPORT - ZINA SALDIVAR [id number] << CODES: [id number] - IMMUNOPEROXIDAS [id number] - PHARYNX, NOS COPIES TO: Gm Saldivar Jr, MD [address] [place] [address] [phone] Bhargav Juares Jr, MD [address] [place], [place] [id number] PROCEDURES: SURG/PATH GROSS (10/22/19-0910) IMMUNOPEROXIDAS ( 10/25/19-1018) TISSUES: A. PHARYNX, NOS - LEFT POSTERIOR PHARYNGEAL LESION CONTINUED ON NEXT PAGE RUN DATE: 10/26/19 [facility] LIVE PAGE 2 RUN TIME: 1414 Specimen Inquiry RUN USER: INTERFACE SPEC #: [id number] PATIENT: ZINA SALDIVAR # [id number] (Continued) ------- Surgery information Surgery date 10/21/19 Surgeon(s): BHARGAV JUARES Pre-Op Dx: POSTERIOR PHRYNGEAL LESION-LEFT Post-Op Dx: SAME Signed SIGNATURE ON FILE RobAlejandroJose Ramon 1413 END OF REPORT VITAMIN D TOTAL 25OH 2018-11-13 15:31:00 Test Item Value Reference Range Comments VITAMIN D TOTAL 25OH (test code=VITD) 54.3 ng/ml 30-100 COMPREHENSIVE METABOLIC [id number] 15:30:00 Test Item Value Reference Range Comments [...] formula)REFERENCE RANGE: > or=60 ml/min/1.73M2IF PATIENT IS -SYRIAN, MULTIPLY REPORTED RESULT BY1.21. CREATININE (test code=CREAT) [...] Twice average 6.14 Three times average T4 [id number] 15:30:00 Test Item Value Reference Range Comments T4 FREE (test code=T4F) 1.05 ng/dl 0.76-1.46 THYROID STIMULATING [id number] 15:30:00 Test Item Value Reference Range Comments THYROID STIMULATING HORMONE (test code=TSH) 2.571 0.358-3.74 CBC W/AUTO [id number] 14:58:00 Test Item Value Reference Range Comments [...] code=BA#) 0.1 X10(3) 0.0-0.2 URINALYSIS W REFLEX [id number] 14:47:00 Test Item Value Reference Range Comments [...] MICROSCOPIC NEEDED? (test code=UAMICRO) URINALYSIS W REFLEX [id number] 14:47:00 Test Item Value Reference Range Comments [...]
[2019-11-01] MEDS ORDERED: HEPA 1000U/500MLS 2,000 UNIT/1,000 ML BAG IV ONE (10:19)
[2019-11-01] MEDS ORDERED: LIDOCAINE 1% MPF 30 ML VIAL ONE (10:19)
[2019-11-01] MEDS ORDERED: HEPARIN 5000 UNIT/ML 1 ML VIAL ONE (11:03)
[2019-11-01] MEDS ORDERED: ATROPINE SULF 1 MG/10 ML SYR IV ONE (11:04)
[2019-11-01] MEDS ORDERED: MIDAZOLAM HCL 2 MG/2 ML INJ ONE ×2 (11:04→11:29)
[2019-11-01] MEDS ORDERED: NA CHLORIDE 0.9% 0 ML ONE (11:04)
[2019-11-01] MEDS ORDERED: NICARDIPINE HCL 25 MG/10 ML IV ONE (11:04)
[2019-11-01] MEDS ORDERED: NITROGLYCERIN 100 MCG/ML SYR (for cath lab use only) IV ONE (11:04)
[2019-11-01] MEDS ORDERED: FENTANYL CITR 100 MCG/2 ML ONE (11:04)
[2019-11-01 15:12] VITALS: TEMP 98.1
[2019-11-01 16:24] VITALS: BP 161/57; O2SAT 95
--- NOTE | 2019-11-01 23:30 | OP ---
Surgeon: Wilman Vazquez MD Inward Toll Operator: Ryan Villagran. Procedure: Left heart catheterization with coronary left ventricular angiography. Findings: Patient has mild coronary plaque, no significant stenosis anywhere. The artery lumens are smooth, mildly calcified. Left ventricular ejection fraction was normal. Systolic blood pressure w as elevated and left ventricular end-diastolic blood pressure was elevated at 16 mmHg indicating left ventricular diastolic dysfunction. Procedure In Detail: The patient was brought to the cardiac aquatic laborer in a fasting state, sedated wit h Versed and fentanyl. Prepared and draped in the usual sterile fashion. The right radial approach was used. 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 We abando manish that approach, removed the sheath at the end of the procedure and placed a TR band over it with a dequate hemostasis. We turned our attention to the right femoral artery, anesthetized the tissue ove r the right femoral artery, entered it with an 18-gauge needle, cannulated it with a short tip J-wire , placed a 4-Portuguese sheath, flushed the sheath. We used a JL4 to angiogram left coronary, 3DRC to an giogram right coronary, angled pigtail to angiogram the left ventricle. At the end of the procedure, catheters were withdrawn over a wire, sheath shots were obtained and the arteriotomy in the right fe moral region was closed using a StarClose device. Estimated Blood Loss: 30 cc. Complications: None. SH/MODL Voice ID: [id number] Report ID: [id number]
== END 2019-11-01 16:05 | disposition home or self-care (01) ==
LOC: CCL 09:20
PROVIDERS: ATTEND Internal Medicine
DX: R94.39 Abnormal result of other cardiovascular function study (principal); I25.10 Atherosclerotic heart disease of native coronary artery without angina pectoris; I49.3 Ventricular premature depolarization; I10 Essential (primary) hypertension; E78.5 Hyperlipidemia, unspecified; Z88.6 Allergy status to analgesic agent
CPT/HCPCS: 85025; 80048; 36415; 85610; 85730; 93458; C1893; J1644; J2250 ×2; J3010; J0583